=== PATIENT | female | born 1955 | race African-American/Black ===

== ENCOUNTER → 2016-05-29 | Outpatient (CLI) | payer MEDICAID, MEDICARE | LOC: WI 09:23 | PROVIDERS: ATTEND Nurse Practitioner Psychiatric/Mental Health | DX: Z12.31 Encounter for screening mammogram for malignant neoplasm of breast (principal) | CPT/HCPCS: 77067; G0202 ==

== ENCOUNTER 2016-10-28 18:34 | Emergency (ER) | payer MEDICARE ==
--- NOTE | 2016-10-28 18:46 | ER Document Report ---
ED Medical Screen (RME) - General Chief Complaint: Dizziness Stated Complaint: DIZZY, BLURRED VISION,HEADACHE Time Seen by Provider: 10/28/16 18:42 Mode of Arrival: Wheelchair Information source: Patient TRAVEL OUTSIDE OF THE [place] IN LAST 30 DAYS: No - HPI Patient complains to provider of: Dizzy, lightheaded, diaphoresis Onset: Just prior to arrival Notes: 10/28/16 18:45 Patient is a 60-year-old female presenting to the emergency room complaining of episode of dizziness, lightheadedness, diaphoresis, felt like she was going to pass out, this occurred while she was eating dinner, EMS found her to be hypotensive, she does have a history of hypertension and takes medication for this but her dosing was not changed recently and no new medications were added, she denies any recent illness or injury, she did have a right-sided headache at one point in time today but that is completely resolved at time of my evaluation , she denies a fever, no cough, cold or congestion, no chest pain or shortness of breath, no nausea, vomiting or diarrhea - Related Data Allergies/Adverse Reactions: No Known Allergies Allergy (Verified 10/28/16 18:40) Past Medical History - Social History Family history: CAD, DM, Hyperlipidemia, Hypertension, Malignancy - Past Medical History Cardiac Medical History: Reports: Hx Hypertension - meds few yrs Denies: Hx Coronary Artery Disease, Hx Heart Attack Pulmonary Medical History: Denies: Hx Asthma, Hx Bronchitis, Hx COPD, Hx Pneumonia, Hx Tuberculosis Neurological Medical History: Denies: Hx Cerebrovascular Accident, Hx Seizures Renal/ Medical History: Denies: Hx Peritoneal Dialysis Musculoskeltal Medical History: Reports Hx Arthritis - all over Psychiatric Medical History: Reports: Hx Depression Past Surgical History: Reports: Hx Cholecystectomy, Hx Hysterectomy. Denies: Hx Pacemaker - Immunizations Immunizations up to date: Yes Hx Diphtheria, Pertussis, Tetanus Vaccination: No
[2016-10-28] MEDS: NORMAL SALINE 1000 ML 1,000 ML IV PRN ×2 (19:08→21:24)
[2016-10-28] MEDS ORDERED: NORMAL SALINE 1000 ML 1,000 ML IV ONE (19:17)
[2016-10-28 19:23] LABS: ABSOLUTE EOSINOPHILS # (AUTO) 0.1 10^3/uL (0.0-0.6); ABSOLUTE MONOCYTES (AUTO) 0.4 10^3/uL (0.1-1.4); ABSOLUTE NEUT (AUTO) 2.4 10^3/uL (1.7-8.2); BASOPHILS % (AUTO) 0.5 % (0-2); EOSINOPHILS % (AUTO) 2.1 % (0-6); HEMATOCRIT 41.1 % (36.0-47.0); HEMOGLOBIN 13.4 g/dL (12.0-15.5); HGB HCT DIFFERENCE -0.9; LYMPHOCYTES % (AUTO) 39.7 % (13-45); MEAN CORPUSCULAR HEMOGLOBIN 29.6 pg (27.0-33.4); MEAN CORPUSCULAR HGB CONC 32.5 g/dL (32.0-36.0); MEAN CORPUSCULAR VOLUME 91 fl (80-97); MONOCYTES % (AUTO) 8.3 % (3-13); RED BLOOD COUNT 4.51 10^6/uL (3.72-5.28); RED CELL DISTRIBUTION WIDTH 15.7 % (11.5-14.0); SEGMENTED NEUTROPHILS % (AUTO) 49.4 % (42-78)
[2016-10-28 19:37] LABS: ALANINE AMINOTRANSFERASE 184 U/L (9-52); ALBUMIN 3.8 g/dL (3.5-5.0); ALKALINE PHOSPHATASE 211 U/L (38-126); ANION GAP 12 (5-19); ASPARTATE AMINO TRANSFERASE 300 U/L (14-36); BILIRUBIN,DIRECT 0.3 mg/dL (0.0-0.4); BILIRUBIN,TOTAL 0.4 mg/dL (0.2-1.3); BLOOD UREA NITROGEN 15 mg/dL (7-20); CALCIUM 9.4 mg/dL (8.4-10.2); CARBON DIOXIDE 23 mmol/L (22-30); CHLORIDE 108 mmol/L (98-107); CREATINE KINASE 249 U/L (30-135); CREATININE RESULT 1.83 mg/dL (0.52-1.25); GLUCOSE 82 mg/dL (75-110); TOTAL PROTEIN 7.1 g/dL (6.3-8.2)
[2016-10-28 19:47] LABS: CREATINE KINASE MB 1.49 ng/mL (<4.55); TROPONIN I < 0.012 ng/mL
[2016-10-28 20:08] LABS: APPEARANCE,URINE CLOUDY; BILIRUBIN,URINE SMALL (NEGATIVE); GLUCOSE, URINE NEGATIVE (NEGATIVE); KETONES,URINE NEGATIVE (NEGATIVE); LEUKOCYTE ESTERASE,URINE TRACE (NEGATIVE); NITRITE,URINE NEGATIVE (NEGATIVE); PROTEIN,URINE 30 mg/dL (NEGATIVE); URINE SPECIFIC GRAVITY 1.023
--- NOTE | 2016-10-28 20:30 | ER Document Report ---
ED General - General Chief Complaint: Dizziness Stated Complaint: DIZZY, BLURRED VISION,HEADACHE Time Seen by Provider: 10/28/16 18:42 Mode of Arrival: Wheelchair Information source: Patient Notes: 60-year-old female resents with complaints of dizziness lightheadedness sensation she is going to pass out. Patient notes symptoms worsen when she stands up. Patient found to be hypotensive on arrival. Patient denies any fevers or chills denies any nausea vomiting or diarrhea. Patient denies a history of hypotension but notes a history of hypertension unsure which medication she states she knows she took it this morning TRAVEL OUTSIDE OF THE [place] IN LAST 30 DAYS: No - HPI Onset: Just prior to arrival Onset/Duration: Sudden Quality of pain: No pain Severity: Moderate Pain Level: Denies Associated symptoms: Weakness Exacerbated by: Standing Relieved by: Denies Similar symptoms previously: No Recently seen / treated by doctor: No - Related Data Allergies/Adverse Reactions: No Known Allergies Allergy (Verified 10/28/16 18:40) Past Medical History - General Information source: Patient - Social History Smoking Status: Current Every Day Smoker Cigarette use (# per day): Yes Chew tobacco use (# tins/day): No Smoking Education Provided: No Frequency of alcohol use: Heavy Drug Abuse: None Family History: Reviewed & Not Pertinent - Past Medical History Cardiac Medical History: Reports: Hx Hypertension - meds few yrs Denies: Hx Coronary Artery Disease, Hx Heart Attack Pulmonary Medical History: Denies: Hx Asthma, Hx Bronchitis, Hx COPD, Hx Pneumonia, Hx Tuberculosis Neurological Medical History: Denies: Hx Cerebrovascular Accident, Hx Seizures Renal/ Medical History: Denies: Hx Peritoneal Dialysis Musculoskeltal Medical History: Reports Hx Arthritis - all over Psychiatric Medical History: Reports: Hx Depression Past Surgical History: Reports: Hx Cholecystectomy, Hx Hysterectomy. Denies: Hx Pacemaker - Immunizations Immunizations up to date: Yes Hx Diphtheria, Pertussis, Tetanus Vaccination: No Hx Pneumococcal Vaccination: 11/03/12 Review of Systems - Review of Systems Notes: REVIEW OF SYSTEMS: CONSTITUTIONAL : Denies fever, chills, or sweats. Denies recent illness. Admits to diaphoresis EENT: Denies eye, ear, throat, or mouth pain or symptoms. Denies nasal or sinus congestion or discharge. Denies throat, tongue, or mouth swelling or difficulty swallowing. CARDIOVASCULAR: Denies chest pain. Denies palpitations or racing or irregular heart beat. Denies ankle edema. RESPIRATORY: Denies cough, cold, or chest congestion. Denies shortness of breath, difficulty breathing, or wheezing. GASTROINTESTINAL: Denies abdominal pain or distention. Denies nausea, vomiting , or diarrhea. Denies blood in vomitus, stools, or per rectum. Denies black, tarry stools. Denies constipation. GENITOURINARY: Denies difficulty urinating, painful urination, burning, frequency, blood in urine, or discharge. FEMALE GENITOURINARY: Denies vaginal bleeding, heavy or abnormal periods, irregular periods. Denies vaginal discharge or odor. MUSCULOSKELETAL: Denies back or neck pain or stiffness. Denies joint pain or swelling. SKIN: Denies rash, lesions or sores. HEMATOLOGIC : Denies easy bruising or bleeding. LYMPHATIC: Denies swollen, enlarged glands. NEUROLOGICAL: Admits lightheadedness dizziness PSYCHIATRIC: Denies anxiety or stress. Denies depression, suicidal ideation, or homicidal ideation. ALL OTHER SYSTEMS REVIEWED AND NEGATIVE. PHYSICAL EXAMINATION: GENERAL: Well-appearing, well-nourished and in no acute distress. Hypotensive on arrival HEAD: Atraumatic, normocephalic. EYES: Pupils equal round and reactive to light, extraocular movements intact, conjunctiva are normal. ENT: Nares patent, oropharynx clear without exudates. Moist mucous membranes. NECK: Normal range of motion, supple without lymphadenopathy LUNGS: Breath sounds clear to auscultation bilaterally and equal. No wheezes rales or rhonchi. HEART: Regular rate and rhythm without murmurs ABDOMEN: Soft, nontender, nondistended abdomen. No guarding, no rebound. No masses appreciated. Female : deferred Musculoskeletal: Normal range of motion, no pitting or edema. No cyanosis. NEUROLOGICAL: Cranial nerves grossly intact. Normal speech, normal gait. Normal sensory, motor exams PSYCH: Normal mood, normal affect. SKIN: Warm, Dry, normal turgor, no rashes or lesions noted. Dictation was performed using [employer] voice recognition software Physical Exam - Vital signs Vitals: Temp Pulse Resp BP Pulse Ox 97.6 F 109 H 20 93/57 L 96 10/28/16 18:40 10/28/16 18:40 10/28/16 18:40 10/28/16 18:40 10/28/16 18:40 Course - Re-evaluation Re-evalutation: 10/28/16 20:29 Patient immediately started on IV fluids otherwise looks well, lab work is consistent with elevated liver enzymes, ultrasound is pending patient otherwise afebrile 10/28/16 23:04 Patient admits that she does take hydrocodone with Tylenol in it, I believe this is a cause of her elevated liver enzymes, I do believe her blood pressure was low due to dehydration or medication use. Patient was given 4 bags of IV fluids given that she does not have a CHF history, she notes significant improvement, both she and family request to be discharged. Patient will follow up with her primary care physician regarding her pain medications After performing a Medical Screening Examination, I estimate there is LOW risk for INTRACRANIAL HEMORRHAGE, ISCHEMIC CVA, MALIGNANT DYSRHYTHMIA, ACUTE CORONARY SYNDROME, MENINGITIS, PULMONARY EMBOLISM, or SEPSIS thus I consider the discharge disposition reasonable. I have reevaluated this patient multiple times and no significant life threatening changes are noted. The patient and I have discussed the diagnosis and risks, and we agree with discharging home with close follow-up with the understanding that symptoms and presentations can change. We also discussed returning to the Emergency Department immediately if new or worsening symptoms occur. We have discussed the symptoms which are most concerning (e.g., changing or worsening pain, weakness, vomiting, fever) that necessitate immediate return. - Vital Signs Vital signs: Temp Pulse Resp BP Pulse Ox 97.6 F 109 H 20 115/54 L 100 10/28/16 18:40 10/28/16 18:40 10/28/16 22:38 10/28/16 22:38 10/28/16 22:38 - Laboratory Result Diagrams: 10/28/16 19:07 10/28/16 19:07 Laboratory results interpreted by me: 10/28/16 10/28/16 10/28/16 19:07 19:07 19:50 RDW 15.7 H Chloride 108 H Creatinine 1.83 H Est GFR ( Amer) 34 L Est GFR (Non-Af Amer) 28 L AST 300 H ALT 184 H Alkaline Phosphatase 211 H Creatine Kinase 249 H Urine Protein 30 H Urine Bilirubin SMALL H Urine Urobilinogen 4.0 H Ur Leukocyte Esterase TRACE H Discharge - Discharge Clinical Impression: Elevated liver enzymes, Acute renal insufficiency Hypotension Qualifiers: Hypotension type: unspecified hypotension type Qualified Code(s): I95.9 - Hypotension, unspecified Condition: Stable Disposition: HOME, SELF-CARE Instructions: Hypotension ([facility]), Liver Function Abnormality ([facility]) Additional Instructions: Please stop taking any Tylenol Referrals: HECTOR LA[facility] MD [Primary Care Provider] - Follow up tomorrow
[2016-10-28] MEDS ORDERED: NORMAL SALINE 1000 ML 1,000 ML IV PRN (20:54)
--- NOTE | 2016-10-28 21:04 | EKG REPORT ---
SEVERITY:- BORDERLINE ECG - SINUS RHYTHM PROBABLE LEFT ATRIAL ABNORMALITY : Confirmed by: Jaciel Bull 28-Oct-2016 21:03:51
--- NOTE | 2016-10-28 21:23 | RADIOLOGY REPORT (SQ) ---
EXAM DESCRIPTION: U/S ABDOMEN LIMITED W/O DOP COMPLETED DATE/TIME: 10/28/2016 9:14 pm REASON FOR STUDY: RUQ PAIN COMPARISON: 2013. TECHNIQUE: Dynamic and static grayscale images acquired of the abdomen and recorded on PACS. Julianao nal selected color Doppler and spectral images recorded. LIMITATIONS: Study limited due to acoustical interference from fat or from air in the bowel. FINDINGS: PANCREAS: Poorly seen secondary to acoustical interference from fat or from air in the bow el. No visualized masses. Duct normal caliber as seen. LIVER: Echotexture is coarse with increased echogenicity consistent with fatty infiltration. LIVER VASCULATURE: Normal directional flow of the main portal vein and hepatic veins. GALLBLADDER: Cholecystectomy. ULTRASOUND-DETECTED BARBOSA'S SIGN: Not applicable. INTRAHEPATIC DUCTS AND COMMON DUCT: CBD and intrahepatic ducts normal caliber. No filling defects. INFERIOR VENA CAVA: Normal flow. AORTA: No aneurysm. RIGHT KIDNEY: Normal size. Normal echogenicity. No solid or suspicious masses. No hydronephrosis. No calcifications. LEFT KIDNEY: Normal size. Normal echogenicity. No solid or suspicious masses. No hydronephrosis. No calcifications. SPLEEN:Normal size. No solid masses. PERITONEAL AND PLEURAL SPACES: No ascites or effusions. OTHER: No other significant finding. IMPRESSION: FATTY INFILTRATION OF THE LIVER. NO OTHER SIGNIFICANT FINDING IN THE VISUALIZED ABDOMEN. TECHNICAL DOCUMENTATION: JOB ID: [id number] [employer]- All Rights Reserved
[2016-10-28 22:39] VITALS: BP 115/54
== END 2016-10-28 22:48 | disposition home or self-care (01) ==
LOC: ER 18:34
DX: N28.9 Disorder of kidney and ureter, unspecified (principal); R74.8 Abnormal levels of other serum enzymes; I95.9 Hypotension, unspecified; R42 Dizziness and giddiness; R51 Headache; H53.8 Other visual disturbances; F17.210 Nicotine dependence, cigarettes, uncomplicated
CPT/HCPCS: 93005; 99285; 96360; 96361; 36415; 82553; 82550; 85025; 80053; 81001; 84484; 80074; 76705; 93010; J7030

== ENCOUNTER 2018-08-31 15:00 | Inpatient (IN) | payer MEDICARE ==
--- NOTE | 2018-08-31 15:28 | ER Document Report ---
ED Medical Screen (RME) - General Chief Complaint: S/S of Possible Stroke Stated Complaint: WEAKNESS Time Seen by Provider: 08/31/18 15:04 Primary Care Provider: HECT[facility] MD [Primary Care Provider] - Follow up as needed Mode of Arrival: Wheelchair Information source: Patient, Relative Notes: Patient presents to the emergency department with complaints of facial drooping and slurred speech that lasted approximately 5 minutes prior to arrival. Patient now feels weak. Denies history of stroke. No obvious neuro deficits noted. I have greeted and performed a rapid initial assessment of this patient. A comprehensive ED assessment and evaluation of the patient, analysis of test results and completion of the medical decision making process will be conducted by additional ED providers. Dictation of this chart was performed using voice recognition software; therefore, there may be some unintended grammatical errors. TRAVEL OUTSIDE OF THE [place] IN LAST 30 DAYS: No - Related Data Allergies/Adverse Reactions: No Known Allergies Allergy (Verified 08/31/18 15:05) Past Medical History - Social History Family history: CAD, DM, Hyperlipidemia, Hypertension, Malignancy - Past Medical History Cardiac Medical History: Reports: Hx Hypertension - meds few yrs Denies: Hx Coronary Artery Disease, Hx Heart Attack Pulmonary Medical History: Denies: Hx Asthma, Hx Bronchitis, Hx COPD, Hx Pneumonia, Hx Tuberculosis Neurological Medical History: Denies: Hx Cerebrovascular Accident, Hx Seizures Renal/ Medical History: Denies: Hx Peritoneal Dialysis Musculoskeltal Medical History: Reports Hx Arthritis - all over Psychiatric Medical History: Reports: Hx Depression Past Surgical History: Reports: Hx Cholecystectomy, Hx Hysterectomy. Denies: Hx Pacemaker - Immunizations Immunizations up to date: Yes Hx Diphtheria, Pertussis, Tetanus Vaccination: No Doctor's Discharge - Discharge Referrals: H[facility] MD [Primary Care Provider] - Follow up as needed
--- NOTE | 2018-08-31 15:31 | RADIOLOGY REPORT (SQ) ---
EXAM DESCRIPTION: CT HEAD WITHOUT COMPLETED DATE/TIME: 08/31/2018 3:14 pm REASON FOR STUDY: possible stroke COMPARISON: None. TECHNIQUE: Axial images acquired through the brain without intravenous contrast. Images reviewed wi th bone, brain and subdural windows. Additional sagittal and coronal reconstructions were generated. Images stored on PACS. All CT scanners at this facility use dose modulation, iterative reconstruction, and/or weight based d osing when appropriate to reduce radiation dose to as low as reasonably achievable (ALARA). [facility]: Dose Right [facility]: CareDose [facility]: Dose Right [facility]: Teradose 4D [facility]: Monitor110 RADIATION DOSE: CT Rad equipment meets quality standard of care and radiation dose reduction techniq ues were employed. CTDIvol: 53.2 mGy. DLP: 964 mGy-cm. mGy. LIMITATIONS: None. FINDINGS: VENTRICLES: Normal size and contour. CEREBRUM: No masses. No hemorrhage. No midline shift. No evidence for acute infarction. Normal gra y/white matter differentiation. No areas of low density in the white matter. CEREBELLUM: No masses. No hemorrhage. No alteration of density. No evidence for acute infarction. EXTRAAXIAL SPACES: No fluid collections. No masses. ORBITS AND GLOBE: No intra- or extraconal masses. Normal contour of globe without masses. CALVARIUM: No fracture. PARANASAL SINUSES: No fluid or mucosal thickening. SOFT TISSUES: No mass or hematoma. OTHER: No other significant finding. IMPRESSION: No CT evidence of acute stroke or hemorrhage. EVIDENCE OF ACUTE STROKE: NO. Findings reported ER by critical findings reporting system at time of dictation. COMMENT: Quality ID # [id number]: Final reports with documentation of one or more dose reduction techniques (e.g., Automated exposure control, adjustment of the mA and/or kV according to patient size, use of iterative reconstruction technique) TECHNICAL DOCUMENTATION: JOB ID: [id number] [employer]- All Rights Reserved Reading location - IP/workstation name: [email or web address]
--- NOTE | 2018-08-31 15:36 | RADIOLOGY REPORT (SQ) ---
EXAM DESCRIPTION: CHEST SINGLE VIEW COMPLETED DATE/TIME: 08/31/2018 3:24 pm REASON FOR STUDY: possible stroke COMPARISON: None. EXAM PARAMETERS: NUMBER OF VIEWS: One view. TECHNIQUE: Single frontal radiographic view of the chest acquired. RADIATION DOSE: NA LIMITATIONS: None. FINDINGS: LUNGS AND PLEURA: No acute infiltrates or effusions. . MEDIASTINUM AND HILAR STRUCTURES: No masses. Contour normal. HEART AND VASCULAR STRUCTURES: The heart is normal with normal pulmonary vasculature. BONES: No acute findings. HARDWARE: None in the chest. OTHER: No other significant finding. IMPRESSION: NO ACUTE DISEASE. TECHNICAL DOCUMENTATION: JOB ID: [id number] [employer]- All Rights Reserved Reading location - IP/workstation name: [email or web address]
[2018-08-31] MEDS ORDERED: NORMAL SALINE 1000 ML 1,000 ML IV ONE ×2 (15:43→16:33)
[2018-08-31 15:45] LABS: ABSOLUTE EOSINOPHILS # (AUTO) 0.1 10^3/uL (0.0-0.6); ABSOLUTE LYMPHOCYTES (AUTO) 2.3 10^3/uL (0.5-4.7); ABSOLUTE MONOCYTES (AUTO) 0.6 10^3/uL (0.1-1.4); BASOPHILS % (AUTO) 0.8 % (0-2); EOSINOPHILS % (AUTO) 2.1 % (0-6); HEMATOCRIT 39.3 % (36.0-47.0); INTERNATIONAL RATION (INR) 1.01; LYMPHOCYTES % (AUTO) 38.3 % (13-45); MEAN CORPUSCULAR HEMOGLOBIN 29.7 pg (27.0-33.4); MEAN CORPUSCULAR VOLUME 90 fl (80-97); MONOCYTES % (AUTO) 9.7 % (3-13); PLATELET COUNT 295 10^3/uL (150-450); PROTHROMBIN TIME 13.3 SEC (11.4-15.4); RED BLOOD COUNT 4.37 10^6/uL (3.72-5.28); RED CELL DISTRIBUTION WIDTH 15.3 % (11.5-14.0); SEGMENTED NEUTROPHILS % (AUTO) 49.1 % (42-78); TOTAL CELLS COUNTED % (AUTO) 100 %; WHITE BLOOD COUNT 6.1 10^3/uL (4.0-10.5)
[2018-08-31 15:46] LABS: PARTIAL THROMBOPLASTIN TIME 31.3 SEC (23.5-35.8)
[2018-08-31 15:58] LABS: ALANINE AMINOTRANSFERASE 24 U/L (9-52); ALBUMIN 3.7 g/dL (3.5-5.0); ALKALINE PHOSPHATASE 82 U/L (38-126); ANION GAP 8 (5-19); ASPARTATE AMINO TRANSFERASE 22 U/L (14-36); BILIRUBIN,DIRECT 0.2 mg/dL (0.0-0.4); BILIRUBIN,TOTAL 0.3 mg/dL (0.2-1.3); BLOOD UREA NITROGEN 8 mg/dL (7-20); CALCIUM 9.7 mg/dL (8.4-10.2); CARBON DIOXIDE 26 mmol/L (22-30); CHLORIDE 108 mmol/L (98-107); CREATINE KINASE 159 U/L (30-135); GLUCOSE 108 mg/dL (75-110); POTASSIUM 4.2 mmol/L (3.6-5.0); SODIUM 141.8 mmol/L (137-145); TOTAL PROTEIN 6.8 g/dL (6.3-8.2)
[2018-08-31 16:17] LABS: TROPONIN I < 0.012 ng/mL
--- NOTE | 2018-08-31 17:31 | ER Document Report ---
Entered by JAGDISH LOWE SCRIBE 08/31/18 1545 Acting as scribe for:SERENA JAMA MD ED General - General Chief Complaint: S/S of Possible Stroke Stated Complaint: WEAKNESS Time Seen by Provider: 08/31/18 15:04 Mode of Arrival: Wheelchair Notes: Patient is a 62-year-old female presenting to the emergency department complaining of a headache. Patient states that at 1350 today she was sitting down and abruptly got a severe headache. Patient states that she has also been experiencing left sided facial weakness and drooping. Patient states that moments after her headache she began shaking uncontrollably. Patient states that following that she had pain from her left shoulder radiating down to her left calf and stopping the. The patient is on chronic pain management taking [place] 10 mg 3 times daily, and gabapentin. She states this is for arthritis all over her body. The patient has no neurological deficits at this time. She is hypotensive. She is not a TPA candidate. TRAVEL OUTSIDE OF THE [place] IN LAST 30 DAYS: No - Related Data Allergies/Adverse Reactions: No Known Allergies Allergy (Verified 08/31/18 15:05) Past Medical History - General Information source: Patient, Relative - Social History Smoking Status: Unknown if Ever Smoked Cigarette use (# per day): No Chew tobacco use (# tins/day): No Smoking Education Provided: No Frequency of alcohol use: None Occupation: Unemployed Lives with: Family Family History: Reviewed & Not Pertinent - Past Medical History Cardiac Medical History: Reports: Hx Hypertension - meds few yrs Denies: Hx Coronary Artery Disease, Hx Heart Attack Pulmonary Medical History: Denies: Hx Asthma, Hx Bronchitis, Hx COPD, Hx Pneumonia, Hx Tuberculosis Neurological Medical History: Denies: Hx Cerebrovascular Accident, Hx Seizures Renal/ Medical History: Denies: Hx Peritoneal Dialysis Musculoskeletal Medical History: Reports Hx Arthritis - all over Psychiatric Medical History: Reports: Hx Depression Past Surgical History: Reports: Hx Cholecystectomy, Hx Hysterectomy. Denies: Hx Pacemaker - Immunizations Immunizations up to date: Yes Hx Diphtheria, Pertussis, Tetanus Vaccination: No Hx Pneumococcal Vaccination: 11/03/12 Physical Exam - Vital signs Vitals: Pulse Ox 97 08/31/18 15:29 - Notes Notes: Physical Exam: General: Alert, drowsy. HEENT: Left-sided facial droop. Atraumatic. PERRL. Extraocular movements intact. Oropharynx clear. Neck: Posterior cervical musculatur mildly tender to palpation. supple. Non- tender. Respiratory: No respiratory distress. Clear and equal breath sounds bilaterally. Cardiovascular: Upon entering the room patient was hypotensive, patient stayed that way for the entire time seeing her. Regular rate and rhythm. Abdominal: Normal Inspection. Non-tender. No distension. Normal Bowel Sounds. Back: Non-tender. No deformity or step off. Extremities: Moves all four extremities. Upper extremities: Normal inspection. Normal ROM. Lower extremities: Normal inspection. Trace edema bilaterally. Normal ROM. Neurological: Normal cognition. AAOx4. Normal speech. Psychological: Normal affect. Normal Mood. Skin: Warm. Dry. Normal color. Course - Re-evaluation Re-evalutation: 08/31/18 16:59 After the first liter fluid, the patient's blood pressure has come up from 82 systolic to 91 systolic. At this time she is complaining of pain to her left calf, lateral thigh and hip. Palpating the calf shows it to be quite soft with tenderness to palpate the muscle laterally. There is tenderness to palpate lateral thigh, and tenderness to palpate over the lateral and posterior lateral hip. - Vital Signs Vital signs: Temp Pulse Resp BP Pulse Ox 71 18 116/82 100 08/31/18 15:50 08/31/18 18:30 08/31/18 18:30 08/31/18 18:30 - Laboratory Result Diagrams: 08/31/18 15:30 08/31/18 15:30 Laboratory results interpreted by me: 08/31/18 08/31/18 08/31/18 15:30 15:30 15:30 RDW 15.3 H D-Dimer Chloride 108 H Creatinine 1.69 H Est GFR ( Amer) 37 L Est GFR (Non-Af Amer) 31 L POC Glucose 124 H Creatine Kinase 159 H Urine Urobilinogen 08/31/18 08/31/18 15:30 17:33 RDW D-Dimer 0.86 H Chloride Creatinine Est GFR ( Amer) Est GFR (Non-Af Amer) POC Glucose Creatine Kinase Urine Urobilinogen 2.0 H - Diagnostic Test Radiology reviewed: Image reviewed, Reports reviewed - CT scan of the head is unremarkable. Chest x-ray is unremarkable. - EKG Interpretation by Me EKG shows normal: Sinus rhythm, [place], Intervals, QRS Complexes, ST-T Waves Rate: Normal - 83 Rhythm: NSR - Consults Dr. Cagle Time consulted: 18:10 Consulted provider: will see as inpatient Critical Care Note - Critical Care Note Total time excluding time spent on procedures (mins): 30 Discharge - Discharge Clinical Impression: Renal insufficiency, Pain of left lower extremity Headache Qualifiers: Headache type: unspecified Headache chronicity pattern: acute headache Intractability: not intractable Qualified Code(s): R51 - Headache Hypotension Qualifiers: Hypotension type: unspecified hypotension type Qualified Code(s): I95.9 - Hypotension, unspecified Condition: Stable Disposition: ADMITTED OBSERVATION Admitting Provider: Kadie Cagle covering Unit Admitted: Telemetry Scribe Attestation: 08/31/18 18:37 I personally performed the services described in the documentation, reviewed and edited the documentation which was dictated to the scribe in my presence, and it accurately records my words and actions. I personally performed the services described in the documentation, reviewed and edited the documentation which was dictated to the scribe in my presence, and it accurately records my words and actions.
[2018-08-31 17:46] LABS: APPEARANCE,URINE SLIGHTLY-CLOUDY; BILIRUBIN,URINE NEGATIVE (NEGATIVE); COLOR,URINE YELLOW; GLUCOSE, URINE NEGATIVE (NEGATIVE); KETONES,URINE NEGATIVE (NEGATIVE); LEUKOCYTE ESTERASE,URINE NEGATIVE (NEGATIVE); NITRITE,URINE NEGATIVE (NEGATIVE); PROTEIN,URINE NEGATIVE (NEGATIVE); URINE SPECIFIC GRAVITY 1.005
[2018-08-31 21:07] LABS: LIPASE 50.9 U/L (23-300); PHOSPHORUS 4.2 mg/dL (2.5-4.5)
[2018-08-31 21:25] LABS: FREE T4 (FREE THYROXINE) 0.99 ng/dL (0.78-2.19)
[2018-08-31 21:38] LABS: THYROID STIMULATING HORMONE 1.38 uIU/mL (0.47-4.68)
[2018-08-31] MEDS: NORMAL SALINE 1000 ML 1,000 ML IV PRN (21:58)
[2018-08-31 22:43] LABS: PROTHROMBIN TIME 13.2 SEC (11.4-15.4)
[2018-08-31 22:44] LABS: PARTIAL THROMBOPLASTIN TIME 27.4 SEC (23.5-35.8)
[2018-08-31 23:04] LABS: CREATINE KINASE MB 0.49 ng/mL (<4.55)
[2018-08-31 23:05] LABS: TROPONIN I < 0.012 ng/mL
[2018-08-31 23:55] LABS: APPEARANCE,URINE CLEAR; BILIRUBIN,URINE NEGATIVE (NEGATIVE); COLOR,URINE YELLOW; GLUCOSE, URINE NEGATIVE (NEGATIVE); KETONES,URINE NEGATIVE (NEGATIVE); LEUKOCYTE ESTERASE,URINE NEGATIVE (NEGATIVE); NITRITE,URINE NEGATIVE (NEGATIVE); PROTEIN,URINE NEGATIVE (NEGATIVE); URINE SPECIFIC GRAVITY 1.005
--- NOTE | 2018-09-01 00:06 | EKG REPORT ---
SEVERITY:- NORMAL ECG - SINUS RHYTHM : Confirmed by: Jaciel Bull 01-Sep-2018 00:06:15
[2018-09-01 04:59] LABS: ABSOLUTE BASOPHILS # (AUTO) 0.1 10^3/uL (0.0-0.2); ABSOLUTE EOSINOPHILS # (AUTO) 0.2 10^3/uL (0.0-0.6); ABSOLUTE LYMPHOCYTES (AUTO) 3.6 10^3/uL (0.5-4.7); ABSOLUTE MONOCYTES (AUTO) 0.7 10^3/uL (0.1-1.4); ABSOLUTE NEUT (AUTO) 3.6 10^3/uL (1.7-8.2); BASOPHILS % (AUTO) 0.8 % (0-2); EOSINOPHILS % (AUTO) 2.2 % (0-6); HEMOGLOBIN 12.1 g/dL (12.0-15.5); LYMPHOCYTES % (AUTO) 44.5 % (13-45); MEAN CORPUSCULAR HEMOGLOBIN 29.5 pg (27.0-33.4); MEAN CORPUSCULAR HGB CONC 32.6 g/dL (32.0-36.0); MEAN CORPUSCULAR VOLUME 90 fl (80-97); MONOCYTES % (AUTO) 8.4 % (3-13); PLATELET COUNT 276 10^3/uL (150-450); RED BLOOD COUNT 4.09 10^6/uL (3.72-5.28); RED CELL DISTRIBUTION WIDTH 15.6 % (11.5-14.0); SEGMENTED NEUTROPHILS % (AUTO) 44.1 % (42-78); TOTAL CELLS COUNTED % (AUTO) 100 %; WHITE BLOOD COUNT 8.1 10^3/uL (4.0-10.5)
[2018-09-01 05:46] LABS: ALANINE AMINOTRANSFERASE 19 U/L (9-52); ALBUMIN 3.1 g/dL (3.5-5.0); ALKALINE PHOSPHATASE 83 U/L (38-126); ASPARTATE AMINO TRANSFERASE 33 U/L (14-36); BILIRUBIN,DIRECT 0.2 mg/dL (0.0-0.4); BILIRUBIN,TOTAL 0.2 mg/dL (0.2-1.3); BLOOD UREA NITROGEN 10 mg/dL (7-20); CALCIUM 8.5 mg/dL (8.4-10.2); CHOLESTEROL 158.12 mg/dL (0-200); GLUCOSE 97 mg/dL (75-110); POTASSIUM 3.6 mmol/L (3.6-5.0); TOTAL PROTEIN 6.1 g/dL (6.3-8.2); TRIGLYCERIDES 78 mg/dL (<150)
[2018-09-01 05:51] LABS: ANION GAP 5 (5-19); CARBON DIOXIDE 23 mmol/L (22-30); CHLORIDE 115 mmol/L (98-107); SODIUM 143.1 mmol/L (137-145)
[2018-09-01 05:54] LABS: CREATINE KINASE MB 0.58 ng/mL (<4.55); TROPONIN I < 0.012 ng/mL
[2018-09-01 05:59] LABS: DIRECT LDL 98 mg/dL (<100)
[2018-09-01] MEDS: NORMAL SALINE 1000 ML 1,000 ML IV PRN (06:46)
--- NOTE | 2018-09-01 09:43 | PDOC H&P ---
History of Present Illness Admission Date/PCP: 08/31/18 18:40 [place] History of Present Illness: LEONARDA RIVERA is a 62 year old female, she came to the emergency room for evaluation of a new onset transient loss of vision, left-sided headache and left-sided weakness. She stated that she was in granddaughter's house, she was drinking wine and she experienced transient loss of vision that lasted few minutes subsequently she developed a headache and also transient weakness of left side of her body. She had difficulty ambulating, she was assisted to the vehicle by family members. When she arrived in the emergency room the blood pressure recorded was low there was no explanation for the low blood pressure she was fluid challenge with improvement in the blood pressure she was also found to have elevated serum creatinine at 1.69, she does not have a known history of kidney disease that she know of, she has chronic pain and she follows with pain management she is on opioid [place] with gabapentin for pain control. She has no diabetes mellitus but she is overweight/obese, she had gastric bypass in the 90s obviously that is unsuccessful surgery because she is very obese, the body mass index is 59. Past Medical History Cardiac Medical History: Reports: Hypertension - meds few yrs Endocrine Medical History: Reports: Obesity Musculoskeltal Medical History: Reports: Arthritis - all over Psychiatric Medical History: Reports: Depression - anxiety Past Surgical History Past Surgical History: Reports: Cholecystectomy, Hysterectomy Social History Lives with: Family Smoking Status: Current Every Day Smoker Cigarettes Packs Per Day: 0.5 Number of Years Smokin Last Time Smoked: today Frequency of Alcohol Use: Rare Hx Recreational Drug Use: No Drugs: Marijuana Hx Prescription Drug Abuse: No Family History Family History: Reviewed & Not Pertinent Parental Family History Reviewed: Yes Children Family History Reviewed: Yes Sibling(s) Family History Reviewed.: Yes Medication/Allergy Allergies/Adverse Reactions: No Known Allergies Allergy (Verified 08/31/18 15:05) Review of Systems Constitutional: ABSENT: chills, fever(s), headache(s), weight gain, weight loss Eyes: ABSENT: visual disturbances Ears: ABSENT: hearing changes Cardiovascular: ABSENT: chest pain, dyspnea on exertion, edema, orthropnea, palpitations Respiratory: ABSENT: cough, hemoptysis Gastrointestinal: ABSENT: abdominal pain, constipation, diarrhea, hematemesis, hematochezia, nausea, vomiting Genitourinary: ABSENT: dysuria, hematuria Musculoskeletal: ABSENT: joint swelling Integumentary: ABSENT: rash, wounds Neurological: PRESENT: weakness Psychiatric: ABSENT: anxiety, depression, homidical ideation, suicidal ideation Endocrine: ABSENT: cold intolerance, heat intolerance, menstrual abnormalities, polydipsia, polyuria Hematologic/Lymphatic: ABSENT: easy bleeding, easy bruising, lymphadenopathy Physical Exam Vital Signs: Temp Pulse Resp BP Pulse Ox 97.3 F 65 18 140/71 H 100 09/01/18 07:29 09/01/18 07:29 09/01/18 07:29 09/01/18 07:29 09/01/18 07:29 Intake & Output 08/31/18 09/01/18 09/02/18 06:59 06:59 06:59 Intake Total 3260 Output Total 900 Balance 2360 Weight 157.1 kg General appearance: PRESENT: morbidly obese Head exam: PRESENT: atraumatic, normocephalic Eye exam: PRESENT: PERRLA Mouth exam: PRESENT: moist, tongue midline Neck exam: PRESENT: full ROM Respiratory exam: PRESENT: clear to auscultation hermes Cardiovascular exam: PRESENT: RRR, +S1, +S2 Pulses: PRESENT: normal dorsalis pedis pul, +2 pedal pulses bilateral Vascular exam: PRESENT: normal capillary refill GI/Abdominal exam: PRESENT: normal bowel sounds, soft Rectal exam: PRESENT: deferred Neurological exam: PRESENT: alert, CN II-XII grossly intact Psychiatric exam: PRESENT: appropriate affect, normal mood Skin exam: PRESENT: dry, intact, warm Results Laboratory Results: 09/01/18 04:35 09/01/18 04:35 08/31/18 08/31/18 08/31/18 15:30 15:30 15:30 WBC 6.1 RBC 4.37 Hgb 13.0 Hct 39.3 MCV 90 MCH 29.7 MCHC 33.0 RDW 15.3 H Plt Count 295 Seg Neutrophils % 49.1 Lymphocytes % 38.3 Monocytes % 9.7 Eosinophils % 2.1 Basophils % 0.8 Absolute Neutrophils 3.0 Absolute Lymphocytes 2.3 Absolute Monocytes 0.6 Absolute Eosinophils 0.1 Absolute Basophils 0.0 Sodium 141.8 Potassium 4.2 Chloride 108 H Carbon Dioxide 26 Anion Gap 8 BUN 8 Creatinine 1.69 H Est GFR ( Amer) 37 L Est GFR (Non-Af Amer) 31 L Glucose 108 Calcium 9.7 Phosphorus 4.2 Magnesium 2.2 Total Bilirubin 0.3 AST 22 ALT 24 Alkaline Phosphatase 82 Ammonia Total Protein 6.8 Albumin 3.7 Triglycerides Cholesterol LDL Cholesterol Direct VLDL Cholesterol HDL Cholesterol Amylase 112 H Lipase 50.9 TSH Free T4 Urine Color Urine Appearance Urine pH Ur Specific [place] Urine Protein Urine Glucose (UA) Urine Ketones Urine Blood Urine Nitrite Ur Leukocyte Esterase Urine WBC (Auto) Urine RBC (Auto) 08/31/18 08/31/18 08/31/18 15:30 17:33 22:24 WBC RBC Hgb Hct MCV MCH MCHC RDW Plt Count Seg Neutrophils % Lymphocytes % Monocytes % Eosinophils % Basophils % Absolute Neutrophils Absolute Lymphocytes Absolute Monocytes Absolute Eosinophils Absolute Basophils Sodium Potassium Chloride Carbon Dioxide Anion Gap BUN Creatinine Est GFR ( Amer) Est GFR (Non-Af Amer) Glucose Calcium Phosphorus Magnesium Total Bilirubin AST ALT Alkaline Phosphatase Ammonia 20.8 Total Protein Albumin Triglycerides Cholesterol LDL Cholesterol Direct VLDL Cholesterol HDL Cholesterol Amylase Lipase TSH 1.38 Free T4 0.99 Urine Color YELLOW Urine Appearance SLIGHTLY-CLOUDY Urine pH 7.0 Ur Specific [place] 1.005 Urine Protein NEGATIVE Urine Glucose (UA) NEGATIVE Urine Ketones NEGATIVE Urine Blood NEGATIVE Urine Nitrite NEGATIVE Ur Leukocyte Esterase NEGATIVE Urine WBC (Auto) 4 Urine RBC (Auto) 0 08/31/18 09/01/18 09/01/18 23:30 04:35 04:35 WBC 8.1 RBC 4.09 Hgb 12.1 Hct 37.0 MCV 90 MCH 29.5 MCHC 32.6 RDW 15.6 H Plt Count 276 Seg Neutrophils % 44.1 Lymphocytes % 44.5 Monocytes % 8.4 Eosinophils % 2.2 Basophils % 0.8 Absolute Neutrophils 3.6 Absolute Lymphocytes 3.6 Absolute Monocytes 0.7 Absolute Eosinophils 0.2 Absolute Basophils 0.1 Sodium 143.1 Potassium 3.6 Chloride 115 H Carbon Dioxide 23 Anion Gap 5 BUN 10 Creatinine 1.18 Est GFR ( Amer) 57 L Est GFR (Non-Af Amer) 47 L Glucose 97 Calcium 8.5 Phosphorus Magnesium Total Bilirubin 0.2 AST 33 ALT 19 Alkaline Phosphatase 83 Ammonia Total Protein 6.1 L Albumin 3.1 L Triglycerides 78 Cholesterol 158.12 LDL Cholesterol Direct 98 VLDL Cholesterol 16.0 HDL Cholesterol 32 L Amylase Lipase TSH Free T4 Urine Color YELLOW Urine Appearance CLEAR Urine pH 7.0 Ur Specific [place] 1.005 Urine Protein NEGATIVE Urine Glucose (UA) NEGATIVE Urine Ketones NEGATIVE Urine Blood NEGATIVE Urine Nitrite NEGATIVE Ur Leukocyte Esterase NEGATIVE Urine WBC (Auto) 1 Urine RBC (Auto) 0 08/31/18 08/31/18 08/31/18 15:30 15:30 22:24 Creatine Kinase 159 H 120 CK-MB (CK-2) 0.50 Troponin I < 0.012 08/31/18 09/01/18 09/01/18 22:24 04:35 04:35 Creatine Kinase 151 H CK-MB (CK-2) 0.49 0.58 Troponin I < 0.012 < 0.012 Impressions: Head CT 08/31/18 00:00 IMPRESSION: No CT evidence of acute stroke or hemorrhage. EVIDENCE OF ACUTE STROKE: NO. Findings reported ER by critical findings reporting system at time of dictation. Chest X-Ray 08/31/18 15:08 IMPRESSION: NO ACUTE DISEASE. Assessment & Plan - Diagnosis (1) Transient ischemic attack Is this a current diagnosis for this admission?: Yes Plan: What she described is consistent with transient ischemic attack she will be admitted and treated for that (2) Hypotension Qualifiers: Hypotension type: unspecified hypotension type Qualified Code(s): I95.9 - Hypotension, unspecified Is this a current diagnosis for this admission?: Yes Plan: The blood pressure was responsive to fluid challenge (3) Abnormal results of kidney function studies Is this a current diagnosis for this admission?: Yes Plan: This is probably prerenal acute kidney injury, kidney ultrasound will be ordered to rule out post renal azotemia, urinalysis will also be requested
[2018-09-01] MEDS: ENOXAPARIN SODIUM INJ 40 MG/0.4 ML DISP.SYRIN SUBCUT SCH (09:49)
[2018-09-01] MEDS: ATORVASTATIN CALCIUM 80 MG TABLET PO SCH ×2 (10:30→21:11)
[2018-09-01] MEDS: ASPIRIN 325 MG TABLET, ENT COATED PO SCH (10:30)
[2018-09-01 11:25] LABS: CREATINE KINASE MB 0.69 ng/mL (<4.55)
[2018-09-01 11:28] LABS: TROPONIN I < 0.012 ng/mL
--- NOTE | 2018-09-01 11:39 | RADIOLOGY REPORT (SQ) ---
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 TECHNIQUE: Dynamic and static grayscale images acquired of the kidneys and bladder and recorded on P ACS. Additional selected color Doppler and spectral images recorded. LIMITATIONS: None. FINDINGS: RIGHT KIDNEY: Normal size. Normal echogenicity. No solid or suspicious masses. No hydronep hrosis. No calcifications. LEFT KIDNEY: Normal size. Normal echogenicity. No solid or suspicious masses. No hydronephrosis. No calcifications. BLADDER: No masses. OTHER FINDINGS: No other significant finding. IMPRESSION: NORMAL RENAL AND BLADDER ULTRASOUND. TECHNICAL DOCUMENTATION: JOB ID: [id number] [employer]- All Rights Reserved Reading location - IP/workstation name: [email or web address]
--- NOTE | 2018-09-01 12:25 | RADIOLOGY REPORT (SQ) ---
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 TECHNIQUE: Multiplanar imaging includes non-contrasted T1, T2, FLAIR, and diffusion with ADC map seq uences. Images stored on PACS. LIMITATIONS: None. FINDINGS: ANATOMY: No anomalies. Normal vascular flow voids. Pituitary fossa normal. CSF SPACES: Normal in size and contour. No hemorrhage. CEREBRUM: Sulci and gyri normal in size and contour. Normal white matter signal on FLAIR imaging. No evidence of hemorrhage, mass, or extraaxial fluid collection. POSTERIOR FOSSA: No signal alteration. No hemorrhage. No edema, masses or mass effect. Internal jerod tory canals, cerebello-pontine angles, mastoids normal. DIFFUSION IMAGING: Negative for acute or sub-acute infarction. ORBITS: No masses. Globes normal. PARANASAL SINUSES: No fluid levels. Mucosa normal. OTHER: No other significant finding. IMPRESSION: NORMAL MRI OF THE BRAIN WITHOUT INTRAVENOUS GADOLINIUM CONTRAST. EVIDENCE OF ACUTE STROKE: NO. TECHNICAL DOCUMENTATION: JOB ID: [id number] [employer]- All Rights Reserved Reading location - IP/workstation name: [email or web address]
[2018-09-01] MEDS ORDERED: TOPIRAMATE 100 MG TABLET PO ONE (22:15)
[2018-09-01] MEDS ORDERED: HALOPERIDOL 5 MG TABLET PO ONE (22:15)
[2018-09-01] MEDS ORDERED: BENZTROPINE MESYLATE 1 MG TABLET PO ONE (22:15)
[2018-09-01] MEDS ORDERED: GABAPENTIN 300 MG CAPSULE PO ONE (22:15)
[2018-09-02 04:45] LABS: ABSOLUTE EOSINOPHILS # (AUTO) 0.3 10^3/uL (0.0-0.6); ABSOLUTE LYMPHOCYTES (AUTO) 3.3 10^3/uL (0.5-4.7); ABSOLUTE MONOCYTES (AUTO) 0.5 10^3/uL (0.1-1.4); ABSOLUTE NEUT (AUTO) 2.4 10^3/uL (1.7-8.2); BASOPHILS % (AUTO) 0.6 % (0-2); EOSINOPHILS % (AUTO) 3.9 % (0-6); HEMATOCRIT 37.1 % (36.0-47.0); HEMOGLOBIN 12.1 g/dL (12.0-15.5); LYMPHOCYTES % (AUTO) 50.7 % (13-45); MEAN CORPUSCULAR HEMOGLOBIN 29.6 pg (27.0-33.4); MEAN CORPUSCULAR HGB CONC 32.8 g/dL (32.0-36.0); MEAN CORPUSCULAR VOLUME 90 fl (80-97); MONOCYTES % (AUTO) 7.2 % (3-13); PLATELET COUNT 269 10^3/uL (150-450); RED CELL DISTRIBUTION WIDTH 14.9 % (11.5-14.0); SEGMENTED NEUTROPHILS % (AUTO) 37.6 % (42-78); TOTAL CELLS COUNTED % (AUTO) 100 %; WHITE BLOOD COUNT 6.5 10^3/uL (4.0-10.5)
[2018-09-02 05:06] LABS: ALANINE AMINOTRANSFERASE 18 U/L (9-52); ALBUMIN 2.9 g/dL (3.5-5.0); ALKALINE PHOSPHATASE 75 U/L (38-126); ANION GAP 5 (5-19); ASPARTATE AMINO TRANSFERASE 20 U/L (14-36); BILIRUBIN,DIRECT 0.1 mg/dL (0.0-0.4); BILIRUBIN,TOTAL 0.2 mg/dL (0.2-1.3); BLOOD UREA NITROGEN 11 mg/dL (7-20); CALCIUM 8.7 mg/dL (8.4-10.2); CARBON DIOXIDE 25 mmol/L (22-30); CHLORIDE 113 mmol/L (98-107); GLUCOSE 92 mg/dL (75-110); POTASSIUM 4.2 mmol/L (3.6-5.0); SODIUM 142.8 mmol/L (137-145); TOTAL PROTEIN 5.7 g/dL (6.3-8.2)
[2018-09-02] MEDS: GABAPENTIN 300 MG CAPSULE PO SCH ×3 (05:53→21:10)
[2018-09-02] MEDS ORDERED: (PENDING PHARMACY ID) (Dextroamphetamine/Amphetamine [Adderall Xr 20 Mg Capsule] 20 MG) PO SCH (08:00)
[2018-09-02] MEDS: HALOPERIDOL 5 MG TABLET PO SCH ×2 (09:16→21:09)
[2018-09-02] MEDS: TOPIRAMATE 100 MG TABLET PO SCH ×2 (09:16→21:09)
[2018-09-02] MEDS: ENOXAPARIN SODIUM INJ 40 MG/0.4 ML DISP.SYRIN SUBCUT SCH (09:16)
[2018-09-02] MEDS: BENZTROPINE MESYLATE 1 MG TABLET PO SCH ×2 (09:16→17:14)
[2018-09-02] MEDS: SERTRALINE HCL 50 MG TABLET PO SCH (09:16)
[2018-09-02] MEDS: ASPIRIN 325 MG TABLET, ENT COATED PO SCH (09:16)
[2018-09-02] MEDS ORDERED: NORMAL SALINE 1000 ML 1,000 ML IV PRN (19:35)
--- NOTE | 2018-09-02 19:36 | PDOC PROGRESS REPORT ---
Subjective Progress Note for:: 09/02/18 Subjective:: Patient reported resolution of her left sided headache and vision impairment presently. No chest pain or difficulty with breathing. No nausea, vomiting or abdominal pain. Reason For Visit: UNEXPLAINED HYPOTENSION,ACUTE KIDNEY INJURY Physical Exam Vital Signs: Temp Pulse Resp BP Pulse Ox 98.0 F 70 16 135/70 H 100 09/02/18 11:34 09/02/18 19:00 09/02/18 16:00 09/02/18 16:00 09/02/18 16:00 Intake & Output 09/01/18 09/02/18 09/03/18 06:59 06:59 06:59 Intake Total 3260 1553 900 Output Total 900 4300 900 Balance 2360 -2747 0 Weight 157.1 kg 161.6 kg General appearance: PRESENT: no acute distress Head exam: PRESENT: atraumatic, normocephalic Eye exam: PRESENT: conjunctiva pink. ABSENT: scleral icterus Ear exam: PRESENT: normal external ear exam Mouth exam: PRESENT: moist Respiratory exam: PRESENT: chest wall tenderness, decreased breath sounds Cardiovascular exam: PRESENT: RRR. ABSENT: diastolic murmur, rubs, systolic murmur Vascular exam: ABSENT: pallor GI/Abdominal exam: PRESENT: normal bowel sounds, soft. ABSENT: distended, guarding, mass, organolmegaly, rebound, tenderness Extremities exam: ABSENT: pedal edema Neurological exam: PRESENT: alert, awake, oriented to person, oriented to place, oriented to time, oriented to situation, CN II-XII grossly intact, other - left lower hemiparesis, motor power 4/5. ABSENT: motor sensory deficit Psychiatric exam: PRESENT: appropriate affect, normal mood. ABSENT: homicidal ideation, suicidal ideation Skin exam: PRESENT: dry, warm Results Laboratory Results: 09/02/18 03:58 09/02/18 03:58 09/02/18 09/02/18 03:58 03:58 WBC 6.5 RBC 4.10 Hgb 12.1 Hct 37.1 MCV 90 MCH 29.6 MCHC 32.8 RDW 14.9 H Plt Count 269 Seg Neutrophils % 37.6 L Lymphocytes % 50.7 H Monocytes % 7.2 Eosinophils % 3.9 Basophils % 0.6 Absolute Neutrophils 2.4 Absolute Lymphocytes 3.3 Absolute Monocytes 0.5 Absolute Eosinophils 0.3 Absolute Basophils 0.0 Sodium 142.8 Potassium 4.2 Chloride 113 H Carbon Dioxide 25 Anion Gap 5 BUN 11 Creatinine 1.15 Est GFR ( Amer) 58 L Est GFR (Non-Af Amer) 48 L Glucose 92 Calcium 8.7 Total Bilirubin 0.2 AST 20 ALT 18 Alkaline Phosphatase 75 Total Protein 5.7 L Albumin 2.9 L 08/31/18 08/31/18 08/31/18 15:30 15:30 22:24 Creatine Kinase 159 H 120 CK-MB (CK-2) 0.50 Troponin I < 0.012 08/31/18 09/01/18 09/01/18 22:24 04:35 04:35 Creatine Kinase 151 H CK-MB (CK-2) 0.49 0.58 Troponin I < 0.012 < 0.012 09/01/18 09/01/18 09/01/18 10:17 10:17 15:50 Creatine Kinase 164 H CK-MB (CK-2) 0.69 Troponin I < 0.012 < 0.012 09/01/18 09/02/18 22:08 03:58 Creatine Kinase CK-MB (CK-2) Troponin I < 0.012 < 0.012 Impressions: Head CT 08/31/18 00:00 IMPRESSION: No CT evidence of acute stroke or hemorrhage. EVIDENCE OF ACUTE STROKE: NO. Findings reported ER by critical findings reporting system at time of dictation. Chest X-Ray 08/31/18 15:08 IMPRESSION: NO ACUTE DISEASE. Head MRI 09/01/18 00:00 IMPRESSION: NORMAL MRI OF THE BRAIN WITHOUT INTRAVENOUS GADOLINIUM CONTRAST. EVIDENCE OF ACUTE STROKE: NO. Renal Ultrasound 09/01/18 00:00 IMPRESSION: NORMAL RENAL AND BLADDER ULTRASOUND. Assessment & Plan - Diagnosis (1) Transient ischemic attack with visual impairment Is this a current diagnosis for this admission?: Yes Plan: Improving functional level. Resolution of her impaired vision. Continue rehabilitation services. (2) Hypotension Qualifiers: Hypotension type: unspecified hypotension type Qualified Code(s): I95.9 - Hypotension, unspecified Is this a current diagnosis for this admission?: Yes Plan: Resolved. (3) Headache Qualifiers: Headache type: unspecified Headache chronicity pattern: acute headache Intractability: not intractable Qualified Code(s): R51 - Headache Is this a current diagnosis for this admission?: Yes Plan: Resolved (4) Renal insufficiency Is this a current diagnosis for this admission?: Yes Plan: Improving with IV fluid hydration. Maintain on N/S at 100 ml/hour. (5) Hypertension Is this a current diagnosis for this admission?: Yes Plan: Continue current medication management. (6) Morbid obesity with BMI of 60.0-69.9, adult Is this a current diagnosis for this admission?: Yes Plan: Advised caloric restriction. s/p failed gastric bypass surgery. Will benefit from portable machine sander consultation. - Time Time Spent with patient: 25-34 minutes Medications reviewed and adjusted accordingly: Yes Anticipated discharge: Home with Homehealth Within: Other - Inpatient Certification Based on my medical assessment, after consideration of the patient's comorbidities, presenting symptoms, or acuity I expect that the services needed warrant INPATIENT care.: Yes I certify that my determination is in accordance with my understanding of Medicare's requirements for reasonable and necessary INPATIENT services [42 CFR 412.3e].: Yes Medical Necessity: Significant Comorbidiites Make Outpatient Treatment Too Risky, Need Close Monitoring Due to Risk of Patient Decompensation, Need For IV Fluids, Need For Continuous Telemetry Monitoring, Risk of Complication if Not Cared For in Hospital, Risk of Diagnosis Which Will Require Inpatient Eval/Care/Monitoring Post Hospital Care: D/C Diamond Die Polisher Documentation - Plan Summary Plan Summary: D/C MEND. Follow up on requested carotid duplex and echocardiogram. Continue IV fluid support. Obtain BMP in am.
[2018-09-02] MEDS: ATORVASTATIN CALCIUM 80 MG TABLET PO SCH (21:09)
[2018-09-03] MEDS: GABAPENTIN 300 MG CAPSULE PO SCH ×3 (05:35→22:26)
[2018-09-03 06:26] LABS: ABSOLUTE BASOPHILS # (AUTO) 0.1 10^3/uL (0.0-0.2); ABSOLUTE EOSINOPHILS # (AUTO) 0.2 10^3/uL (0.0-0.6); ABSOLUTE LYMPHOCYTES (AUTO) 2.6 10^3/uL (0.5-4.7); ABSOLUTE MONOCYTES (AUTO) 0.4 10^3/uL (0.1-1.4); ABSOLUTE NEUT (AUTO) 2.4 10^3/uL (1.7-8.2); BASOPHILS % (AUTO) 1.2 % (0-2); EOSINOPHILS % (AUTO) 3.3 % (0-6); HEMATOCRIT 36.4 % (36.0-47.0); MEAN CORPUSCULAR HEMOGLOBIN 29.4 pg (27.0-33.4); MEAN CORPUSCULAR HGB CONC 32.8 g/dL (32.0-36.0); MEAN CORPUSCULAR VOLUME 90 fl (80-97); MONOCYTES % (AUTO) 6.9 % (3-13); PLATELET COUNT 246 10^3/uL (150-450); RED BLOOD COUNT 4.07 10^6/uL (3.72-5.28); RED CELL DISTRIBUTION WIDTH 15.2 % (11.5-14.0); SEGMENTED NEUTROPHILS % (AUTO) 42.6 % (42-78); TOTAL CELLS COUNTED % (AUTO) 100 %; WHITE BLOOD COUNT 5.6 10^3/uL (4.0-10.5)
[2018-09-03 06:52] LABS: ALANINE AMINOTRANSFERASE 19 U/L (9-52); ALKALINE PHOSPHATASE 82 U/L (38-126); ANION GAP 5 (5-19); ASPARTATE AMINO TRANSFERASE 20 U/L (14-36); BILIRUBIN,DIRECT 0.2 mg/dL (0.0-0.4); BILIRUBIN,TOTAL 0.3 mg/dL (0.2-1.3); BLOOD UREA NITROGEN 13 mg/dL (7-20); CALCIUM 8.9 mg/dL (8.4-10.2); CARBON DIOXIDE 24 mmol/L (22-30); CHLORIDE 112 mmol/L (98-107); GLUCOSE 98 mg/dL (75-110); POTASSIUM 4.2 mmol/L (3.6-5.0); SODIUM 141.2 mmol/L (137-145); TOTAL PROTEIN 5.9 g/dL (6.3-8.2)
[2018-09-03] MEDS: ENOXAPARIN SODIUM INJ 40 MG/0.4 ML DISP.SYRIN SUBCUT SCH (09:36)
[2018-09-03] MEDS: BENAZEPRIL HCL 20 MG TABLET PO SCH (09:37)
[2018-09-03] MEDS: HYDROCODONE/ACETAMINOPHEN 10-325 MG TABLET PO PRN (09:37)
[2018-09-03] MEDS: HALOPERIDOL 5 MG TABLET PO SCH ×2 (09:37→22:26)
[2018-09-03] MEDS: BENZTROPINE MESYLATE 1 MG TABLET PO SCH ×2 (09:37→17:07)
[2018-09-03] MEDS: ASPIRIN 325 MG TABLET, ENT COATED PO SCH (09:37)
[2018-09-03] MEDS: SERTRALINE HCL 50 MG TABLET PO SCH (09:37)
[2018-09-03] MEDS: AMLODIPINE BESYLATE 10 MG TABLET PO SCH (09:37)
[2018-09-03] MEDS: TOPIRAMATE 100 MG TABLET PO SCH ×2 (09:38→22:25)
[2018-09-03] MEDS ORDERED: (PENDING PHARMACY ID) (Amlodipine Besylate/Benazepril [Lotrel 10-40 Mg Capsule] 1 CAP) PO SCH (10:00)
--- NOTE | 2018-09-03 12:26 | PDOC PROGRESS REPORT ---
Subjective Progress Note for:: 09/03/18 Subjective:: Patient denied any chest pain, difficulty with breathing. Ambulate with walker assistance in her room. No nausea, vomiting, or abdominal pain. No reported fever or chills. Reason For Visit: UNEXPLAINED HYPOTENSION,ACUTE KIDNEY INJURY Physical Exam Vital Signs: Temp Pulse Resp BP Pulse Ox 98.1 F 59 L 14 110/67 93 09/03/18 07:40 09/03/18 07:40 09/03/18 07:40 09/03/18 07:40 09/03/18 07:40 Intake & Output 09/02/18 09/03/18 09/04/18 06:59 06:59 06:59 Intake Total 1553 900 Output Total 4300 1750 Balance -2747 -850 Weight 161.6 kg 162.7 kg Physical Exam: General appearance: PRESENT: no acute distress Head exam: PRESENT: atraumatic, normocephalic Eye exam: PRESENT: conjunctiva pink. ABSENT: pallor, scleral icterus Ear exam: PRESENT: normal external ear exam Mouth exam: PRESENT: moist Respiratory exam: PRESENT: chest wall tenderness, decreased breath sounds Cardiovascular exam: PRESENT: RRR. ABSENT: diastolic murmur, rubs, systolic murmur GI/Abdominal exam: PRESENT: normal bowel sounds, soft. ABSENT: distended, guarding, mass, organomegaly, rebound, tenderness Extremities exam: ABSENT: pedal edema Neurological exam: PRESENT: alert, awake, oriented to person, oriented to place, oriented to time, oriented to situation, CN II-XII grossly intact, other - left lower hemiparesis, motor power 4/5. ABSENT: motor sensory deficit Psychiatric exam: PRESENT: appropriate affect, normal mood. ABSENT: homicidal ideation, suicidal ideation Skin exam: PRESENT: dry, warm Results Laboratory Results: 09/03/18 05:48 09/03/18 05:48 09/03/18 09/03/18 05:48 05:48 WBC 5.6 RBC 4.07 Hgb 12.0 Hct 36.4 MCV 90 MCH 29.4 MCHC 32.8 RDW 15.2 H Plt Count 246 Seg Neutrophils % 42.6 Lymphocytes % 46.0 H Monocytes % 6.9 Eosinophils % 3.3 Basophils % 1.2 Absolute Neutrophils 2.4 Absolute Lymphocytes 2.6 Absolute Monocytes 0.4 Absolute Eosinophils 0.2 Absolute Basophils 0.1 Sodium 141.2 Potassium 4.2 Chloride 112 H Carbon Dioxide 24 Anion Gap 5 BUN 13 Creatinine 1.03 Est GFR ( Amer) > 60 Est GFR (Non-Af Amer) 55 L Glucose 98 Calcium 8.9 Total Bilirubin 0.3 AST 20 ALT 19 Alkaline Phosphatase 82 Total Protein 5.9 L Albumin 3.0 L 08/31/18 08/31/18 08/31/18 15:30 15:30 22:24 Creatine Kinase 159 H 120 CK-MB (CK-2) 0.50 Troponin I < 0.012 08/31/18 09/01/18 09/01/18 22:24 04:35 04:35 Creatine Kinase 151 H CK-MB (CK-2) 0.49 0.58 Troponin I < 0.012 < 0.012 09/01/18 09/01/18 09/01/18 10:17 10:17 15:50 Creatine Kinase 164 H CK-MB (CK-2) 0.69 Troponin I < 0.012 < 0.012 09/01/18 09/02/18 22:08 03:58 Creatine Kinase CK-MB (CK-2) Troponin I < 0.012 < 0.012 Impressions: Head CT 08/31/18 00:00 IMPRESSION: No CT evidence of acute stroke or hemorrhage. EVIDENCE OF ACUTE STROKE: NO. Findings reported ER by critical findings reporting system at time of dictation. Chest X-Ray 08/31/18 15:08 IMPRESSION: NO ACUTE DISEASE. Head MRI 09/01/18 00:00 IMPRESSION: NORMAL MRI OF THE BRAIN WITHOUT INTRAVENOUS GADOLINIUM CONTRAST. EVIDENCE OF ACUTE STROKE: NO. Renal Ultrasound 09/01/18 00:00 IMPRESSION: NORMAL RENAL AND BLADDER ULTRASOUND. Assessment & Plan - Diagnosis (1) Transient ischemic attack with visual impairment Is this a current diagnosis for this admission?: Yes (2) Hypotension Qualifiers: Hypotension type: unspecified hypotension type Qualified Code(s): I95.9 - Hypotension, unspecified Is this a current diagnosis for this admission?: Yes (3) Headache Qualifiers: Headache type: unspecified Headache chronicity pattern: acute headache Intractability: not intractable Qualified Code(s): R51 - Headache Is this a current diagnosis for this admission?: Yes (4) Renal insufficiency Is this a current diagnosis for this admission?: Yes (5) Hypertension Is this a current diagnosis for this admission?: Yes (6) Morbid obesity with BMI of 60.0-69.9, adult Is this a current diagnosis for this admission?: Yes - Time Time Spent with patient: 25-34 minutes Medications reviewed and adjusted accordingly: Yes Anticipated discharge: Home with Homehealth Within: Other - Inpatient Certification Based on my medical assessment, after consideration of the patient's com orbidities, presenting symptoms, or acuity I expect that the services needed warrant INPATIENT care.: Yes I certify that my determination is in accordance with my understanding of Medicare's requirements for reasonable and necessary INPATIENT services [42 CFR 412.3e].: Yes Medical Necessity: Significant Comorbidiites Make Outpatient Treatment Too Risky, Need Close Monitoring Due to Risk of Patient Decompensation, Need For IV Fluids, Need For Continuous Telemetry Monitoring, Risk of Complication if Not Cared For in Hospital, Risk of Diagnosis Which Will Require Inpatient Eval/Care/Monitoring Post Hospital Care: D/C Air Deodorizer Servicer Documentation - Plan Summary Plan Summary: Continue current medical management. Follow up on carotid duplex and echocardiogram request. Continue physical therapy intervention. Change patient status to full admission.
--- NOTE | 2018-09-03 16:40 | RADIOLOGY REPORT (SQ) ---
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 TECHNIQUE: Grayscale ultrasound, Doppler velocity and spectra, and color Doppler images acquired of the extra-cranial carotid and vertebral arteries. Images stored on PACS. LIMITATIONS: None. FINDINGS: RIGHT CAROTID CCA Velocities: Within normal limits. ICA Velocities Peak systolic 80 cm/s. End diastolic 21 cm/s. Proximal ICA/CCA peak systolic ratio 1.1. Spectra normal. No significant plaque. LEFT CAROTID CCA Velocities: Within normal limits. ICA Velocities Peak systolic 70 cm/s. End diastolic 27 cm/s. Proximal ICA/CCA peak systolic ratio 0.8. Spectra normal. No significant plaque. VERTEBRAL ARTERIES: Antegrade flow. Normal waveforms. SUBCLAVIAN ARTERIES: No finding. OTHER: No other significant finding. IMPRESSION: 1. NO HEMODYNAMICALLY SIGNIFICANT STENOSIS. COMMENT: Quality ID #[id number]: Velocity criteria are extrapolated from the diameter data as defined by t he Society of Radiologists in Ultrasound Consensus Conference. Radiology 2003: 229; 340-346. TECHNICAL DOCUMENTATION: JOB ID: [id number] [employer]- All Rights Reserved Reading location - IP/workstation name: [email or web address]
--- NOTE | 2018-09-03 20:41 | XCELERA REPORT ---
[address] [address] Transthoracic Echocardiogram Report Name: LEONARDA RIVERA Age: 62 yrs Gender: Female : 1955 Patient Status: Inpatient Patient Location: [facility]^A Study Date: 09/03/2018 03:24 PM Height: 64 in Weight: 346 lb BSA: 2.5 m2 Procedure: A two-dimensional transthoracic echocardiogram with color flow and Doppler was performed. The study was technically limited with all images being suboptimal in quality. Reason For Study: TIA History: TIA. Ordering Physician: TAMMIE BRITT Performed By: Taylor Ortiz Interpretation Summary There is no obvious cardiac source of embolus noted on this transthoracic echocardiogram. Follow-up with a LESLEY is suggested if cardiac source is still suspected. The left ventricle is normal in size. There is normal left ventricular wall thickness. The left ventricular ejection fraction is within normal limits. LV EF is 70% Doppler measurements suggest normal left ventricular diastolic function The left ventricular wall motion is normal. There is no thrombus. There is no ventricular septal defect visualized. The right ventricle is normal in size and function. The right atrium is normal. The left atrial size is normal. The interatrial septum is intact with no evidence for an atrial septal defect. There is no Doppler evidence for an interatrial shunt There is no mitral valve stenosis. There is no evidence of mitral valve prolapse. There is no vegetation seen on the mitral valve. There is a trace amount of mitral regurgitation There is no aortic valvular vegetation. There is aortic sclerosis without aortic stenosis. There is no LVOT obstruction. No aortic regurgitation is present. There is no tricuspid stenosis. There is a trace amount of tricuspid regurgitation Unable to calculate RVSP due to insufficient TR jet. There is no pulmonic valvular stenosis. There is no pulmonic valvular regurgitation. The aortic root is normal size. There is no pericardial effusion. There is no obvious cardiac source of embolus noted on this transthoracic echocardiogram. Follow-up with a LESLEY is suggested if cardiac source is still suspected MMode/2D Measurements & Calculations RVDd: 3.6 cm LVIDd: 4.6 cm FS: 43.2 % Ao root diam: 2.9 cm IVSd: 1.0 cm LVIDs: 2.6 cm EDV(Teich): Ao root area: LVPWd: 1.1 cm 99.5 ml 6.5 cm2 ESV(Teich): LA dimension: 3.6 cm 25.5 ml EF(Teich): 74.4 % LVLd ap4: 8.3 cm SV(MOD-sp4): EDV(MOD-sp4): 69.0 ml 100.0 ml LVLs ap4: 7.2 cm ESV(MOD-sp4): 31.0 ml EF(MOD-sp4): 69.0 % Doppler Measurements & Calculations MV E max tahira: MV P1/2t max tahira: Ao V2 max: LV V1 max P.8 cm/sec 92.8 cm/sec 144.3 cm/sec 5.7 mmHg MV A max tahira: MV P1/2t: 66.7 msec Ao max PG: LV V1 max: 68.1 cm/sec MVA(P1/2t): 3.3 cm2 8.3 mmHg 119.4 cm/sec MV E/A: 1.4 MV dec slope: 407.4 cm/sec2 MV dec time: 0.21 sec PA V2 max: MV P1/2t-pr_phl: 73.5 cm/sec 66.7 msec PA max P.2 mmHg Left Ventricle The left ventricle is normal in size. There is normal left ventricular wall thickness. The left ventricular ejection fraction is within normal limits. LV EF is 70%. Doppler measurements suggest normal left ventricular diastolic function. The left ventricular wall motion is normal. There is no thrombus. There is no ventricular septal defect visualized. Right Ventricle The right ventricle is normal in size and function. Atria The right atrium is normal. The left atrial size is normal. The interatrial septum is intact with no evidence for an atrial septal defect. There is no Doppler evidence for an interatrial shunt. Mitral Valve There is no evidence of mitral valve prolapse. There is no vegetation seen on the mitral valve. There is no mitral valve stenosis. There is a trace amount of mitral regurgitation. Aortic Valve There is no aortic valvular vegetation. There is aortic sclerosis without aortic stenosis. There is no LVOT obstruction. No aortic regurgitation is present. Tricuspid Valve There is no tricuspid stenosis. There is a trace amount of tricuspid regurgitation. Unable to calculate RVSP due to insufficient TR jet. Pulmonic Valve There is no pulmonic valvular stenosis. There is no pulmonic valvular regurgitation. Great Vessels The aortic root is normal size. Effusions There is no pericardial effusion. : TAMMIE BRITT > Lexi Gavin
[2018-09-03] MEDS: ATORVASTATIN CALCIUM 80 MG TABLET PO SCH (22:26)
[2018-09-04] MEDS: GABAPENTIN 300 MG CAPSULE PO SCH ×2 (06:42→14:49)
[2018-09-04] MEDS: BENAZEPRIL HCL 20 MG TABLET PO SCH (08:59)
[2018-09-04] MEDS: TOPIRAMATE 100 MG TABLET PO SCH (08:59)
[2018-09-04] MEDS: HALOPERIDOL 5 MG TABLET PO SCH (08:59)
[2018-09-04] MEDS: ASPIRIN 325 MG TABLET, ENT COATED PO SCH (08:59)
[2018-09-04] MEDS: ENOXAPARIN SODIUM INJ 40 MG/0.4 ML DISP.SYRIN SUBCUT SCH (09:00)
[2018-09-04] MEDS: BENZTROPINE MESYLATE 1 MG TABLET PO SCH ×2 (09:00→17:27)
[2018-09-04] MEDS: SERTRALINE HCL 50 MG TABLET PO SCH (09:00)
[2018-09-04] MEDS: AMLODIPINE BESYLATE 10 MG TABLET PO SCH (09:00)
[2018-09-04] MEDS: HYDROCODONE/ACETAMINOPHEN 10-325 MG TABLET PO PRN (17:33)
--- NOTE | 2018-09-04 18:31 | PDOC DISCHARGE SUMMARY ---
General - Admit/Disc Date/PCP Admission Date/Primary Care Provider: 09/03/18 12:26 HECTOR JAYA Discharge Date: 09/04/18 - Discharge Diagnosis (1) Transient ischemic attack with visual impairment Is this a current diagnosis for this admission?: Yes (2) Hypotension Is this a current diagnosis for this admission?: Yes (3) Headache Is this a current diagnosis for this admission?: Yes (4) Renal insufficiency Is this a current diagnosis for this admission?: Yes (5) Hypertension Is this a current diagnosis for this admission?: Yes (6) Morbid obesity with BMI of 60.0-69.9, adult Is this a current diagnosis for this admission?: Yes - Additional Information Prescriptions: Aspirin [Ecotrin 81 mg EC Tablet] 81 mg PO DAILY 7 Days #1 pkg Aspirin/Dipyridamole [Aggrenox 25 mg/200 mg Capsule SA] 1 cap.sr PO Q12 #60 cpmp.12hr Atorvastatin Calcium [Lipitor 80 mg Tablet] 80 mg PO QHS #30 tablet Home Medications: Amlodipine Besylate/Benazepril [Lotrel 10-40 mg Capsule] 1 cap PO DAILY 09/01/18 Benztropine Mesylate [Benztropine Mesylate 2 mg Tablet] 2 mg PO BID 09/01/18 Dextroamphetamine/Amphetamine [Adderall XR 20 mg Capsule] 20 mg PO QAM 09/01/18 Gabapentin [Neurontin] 600 mg PO Q8 09/01/18 Haloperidol 10 mg PO QHS 09/01/18 Haloperidol [Haldol 5 mg Tablet] 5 mg PO QAM 09/01/18 Hydrocodone/Acetaminophen [Gratiot 10-325 Tablet] 1 tab PO Q4HP PRN 09/01/18 Sertraline HCl [Zoloft] 150 mg PO DAILY 09/01/18 Topiramate [Topamax] 200 mg PO BID 09/01/18 Aspirin [Ecotrin 81 mg EC Tablet] 81 mg PO DAILY 7 Days #1 pkg 09/04/18 Aspirin/Dipyridamole [Aggrenox 25 mg/200 mg Capsule SA] 1 cap.sr PO Q12 #60 cpmp.12hr 09/04/18 Atorvastatin Calcium [Lipitor 80 mg Tablet] 80 mg PO QHS #30 tablet 09/04/18 History of Present Illness Patient complains of: Transient loss of vision, left-sided headache and left- sided weakness. History of Present Illness: LEONARDA RIVERA is a 62 year old female, she came to the emergency room for evaluation of a new onset transient loss of vision, left-sided headache and left-sided weakness. She stated that she was in granddaughter's house, she was drinking wine and she experienced transient loss of vision that lasted few mi nutes subsequently she developed a headache and also transient weakness of left side of her body. She had difficulty ambulating, she was assisted to the vehicle by family members. When she arrived in the emergency room the blood pressure recorded was low there was no explanation for the low blood pressure she was fluid challenge with improvement in the blood pressure she was also found to have elevated serum creatinine at 1.69, she does not have a known history of kidney disease that she know of, she has chronic pain and she follows with pain management she is on opioid Gratiot with gabapentin for pain control. She has no diabetes mellitus but she is overweight/obese, she had gastric bypass in the s obviously that is unsuccessful surgery because she is very obese, the body mass index is 59. Hospital Course Hospital Course: She was admitted for possible TIA with left hemiparesis. She was managed with full dose Ecotrin and Lipid lowering medication. her home anti Hypertensive medication were restarted after improvement in her presenting hypotension. She participated in physical therapy session. Her radiographic evaluation including head CT and MRI, carotid duplex and echocardiogram were unrevealing of significant pathology to explain her presentation of acute TIA or stroke. Her presenting symptoms including headache and visual impairment did resolved. Her left hemiparesis improved with physical therapy intervention and she has been am bulatory with walker assistance. She expressed preference for home health agency with physical therapy to discharge to SNF for short term rehabilitation. She will be discharged home today and follow up in the office as instructed upon discharge. Physical Exam Vital Signs: Temp Pulse Resp BP Pulse Ox 98.1 F 70 17 131/70 H 99 09/04/18 07:54 09/04/18 14:00 09/04/18 07:54 09/04/18 07:54 09/04/18 07:54 Intake & Output 09/03/18 09/04/18 09/05/18 06:59 06:59 06:59 Intake Total 900 1060 240 Output Total 1750 Balance -850 1060 240 Weight 162.7 kg 159.3 kg Physical Exam: General appearance: PRESENT: no acute distress Head exam: PRESENT: atraumatic, normocephalic Eye exam: PRESENT: conjunctiva pink. ABSENT: pallor, scleral icterus Ear exam: PRESENT: normal external ear exam Mouth exam: PRESENT: moist Respiratory exam: PRESENT: chest wall tenderness, decreased breath sounds Cardiovascular exam: PRESENT: RRR. ABSENT: diastolic murmur, rubs, systolic murmur GI/Abdominal exam: PRESENT: normal bowel sounds, soft. ABSENT: distended, guarding, mass, organomegaly, rebound, tenderness Extremities exam: ABSENT: pedal edema Neurological exam: PRESENT: alert, awake, oriented to person, oriented to place, oriented to time, oriented to situation, CN II-XII grossly intact, other - left lower hemiparesis, motor power 4/5. ABSENT: motor sensory deficit Psychiatric exam: PRESENT: appropriate affect, normal mood. ABSENT: homicidal ideation, suicidal ideation Skin exam: PRESENT: dry, warm Results Laboratory Results: 09/03/18 05:48 09/03/18 05:48 08/31/18 23:30 Clean Catch Midstream Urine Culture - Final Urogenital Catalina 08/31/18 08/31/18 08/31/18 15:30 15:30 22:24 Creatine Kinase 159 H 120 CK-MB (CK-2) 0.50 Troponin I < 0.012 08/31/18 09/01/18 09/01/18 22:24 04:35 04:35 Creatine Kinase 151 H CK-MB (CK-2) 0.49 0.58 Troponin I < 0.012 < 0.012 09/01/18 09/01/18 09/01/18 10:17 10:17 15:50 Creatine Kinase 164 H CK-MB (CK-2) 0.69 Troponin I < 0.012 < 0.012 09/01/18 09/02/18 22:08 03:58 Creatine Kinase CK-MB (CK-2) Troponin I < 0.012 < 0.012 Impressions: Head CT 08/31/18 00:00 IMPRESSION: No CT evidence of acute stroke or hemorrhage. EVIDENCE OF ACUTE STROKE: NO. Findings reported ER by critical findings reporting system at time of dictation. Chest X-Ray 08/31/18 15:08 IMPRESSION: NO ACUTE DISEASE. Head MRI 09/01/18 00:00 IMPRESSION: NORMAL MRI OF THE BRAIN WITHOUT INTRAVENOUS GADOLINIUM CONTRAST. EVIDENCE OF ACUTE STROKE: NO. Renal Ultrasound 09/01/18 00:00 IMPRESSION: NORMAL RENAL AND BLADDER ULTRASOUND. Carotid Doppler Study 09/03/18 00:00 IMPRESSION: 1. NO HEMODYNAMICALLY SIGNIFICANT STENOSIS. Qualifiers - * PATIENT BEING DISCHARGED WITH ANY OF THE FOLLOWING DIAGNOSIS: Stroke Stroke Pt being discharged on Anti-thrombolytic therapy?: Yes Stroke Pt being discharged on Anti-coagulation therapy?: No Reason(s) for not prescribing Anti-coagulation therapy:: Not indicated Stroke Pt being discharged on Statins?: Yes Acute Heart Failure - Is this a Heart Failure Patient?: No Plan Discharge Plan: Discharge home today. Follow up in the office as instructed upon discharge.
[2018-09-04 18:51] VITALS: BP 133/87
== END 2018-09-04 19:11 | disposition home health service (06) | DRG 69 ==
LOC: ER 15:00 → EH 18:40 → 3W 21:28 → OBSVTOIN 09-03 12:26
PROVIDERS: ADMIT Internal Medicine Geriatric Medicine; ATTEND Internal Medicine Geriatric Medicine
DX: G45.9 Transient cerebral ischemic attack, unspecified (principal); H53.129 Transient visual loss, unspecified eye; G81.94 Hemiplegia, unspecified affecting left nondominant side; Z68.44 Body mass index [BMI] 60.0-69.9, adult; R53.1 Weakness; I95.9 Hypotension, unspecified; I10 Essential (primary) hypertension; R29.810 Facial weakness; R51 Headache; F41.8 Other specified anxiety disorders; F17.210 Nicotine dependence, cigarettes, uncomplicated; E66.01 Morbid (severe) obesity due to excess calories; Z98.84 Bariatric surgery status
CPT/HCPCS: 36415; 70450; 70551; 71045; 76770; 80048; 80053; 80061; 80076; 81001; 82140; 82150; 82550; 82553; 82962; 83036; 83690; 83735; 84100; 84439; 84443; 84484; 85025; 85379; 85610; 85730; 87040; 87086; 93005; 93010; 93306; 93880; 96360; 96361; 99291; J1650; J3490; J7030

== ENCOUNTER 2019-04-10 02:14 | Emergency (ER) | payer MEDICARE ==
[2019-04-10 04:13] LABS: ABSOLUTE EOSINOPHILS # (AUTO) 0.2 10^3/uL (0.0-0.6); ABSOLUTE LYMPHOCYTES (AUTO) 3.5 10^3/uL (0.5-4.7); ABSOLUTE MONOCYTES (AUTO) 0.5 10^3/uL (0.1-1.4); BASOPHILS % (AUTO) 0.7 % (0-2); EOSINOPHILS % (AUTO) 2.6 % (0-6); HEMATOCRIT 39.5 % (36.0-47.0); HEMOGLOBIN 13.1 g/dL (12.0-15.5); MEAN CORPUSCULAR HEMOGLOBIN 29.5 pg (27.0-33.4); MEAN CORPUSCULAR HGB CONC 33.2 g/dL (32.0-36.0); MEAN CORPUSCULAR VOLUME 89 fl (80-97); MONOCYTES % (AUTO) 6.9 % (3-13); PLATELET COUNT 270 10^3/uL (150-450); RED BLOOD COUNT 4.45 10^6/uL (3.72-5.28); RED CELL DISTRIBUTION WIDTH 14.8 % (11.5-14.0); SEGMENTED NEUTROPHILS % (AUTO) 41.8 % (42-78); TOTAL CELLS COUNTED % (AUTO) 100 %; WHITE BLOOD COUNT 7.3 10^3/uL (4.0-10.5)
[2019-04-10 04:25] LABS: ALBUMIN 3.6 g/dL (3.5-5.0); ALKALINE PHOSPHATASE 85 U/L (38-126); ANION GAP 8 (5-19); ASPARTATE AMINO TRANSFERASE 31 U/L (14-36); BILIRUBIN,DIRECT 0.2 mg/dL (0.0-0.4); BILIRUBIN,TOTAL 0.4 mg/dL (0.2-1.3); BLOOD UREA NITROGEN 6 mg/dL (7-20); CALCIUM 9.1 mg/dL (8.4-10.2); CARBON DIOXIDE 27 mmol/L (22-30); CHLORIDE 106 mmol/L (98-107); GLUCOSE 107 mg/dL (75-110); POTASSIUM 3.3 mmol/L (3.6-5.0); TOTAL PROTEIN 6.9 g/dL (6.3-8.2)
--- NOTE | 2019-04-10 04:56 | RADIOLOGY REPORT (SQ) ---
EXAM DESCRIPTION: XR ABDOMEN 1 VIEW (KUB) COMPLETED DATE/TME: 04/10/2019 00:00 CLINICAL HISTORY: 63 years, Female, PAIN COMPARISON: None. NUMBER OF VIEWS: 3 TECHNIQUE: AP abdomen LIMITATIONS: None. FINDINGS: Osteopenia. Degenerative changes of the lumbar spine. The bowel gas pattern is nonspecific. Evaluation for free air limited on a supine view. Postsurgical changes in the upper abdomen. Nondilated air-filled loops of large and small bowel IMPRESSION: Nonspecific bowel gas pattern copyright 2010 [employer]- All Rights Reserved
[2019-04-10 05:26] LABS: APPEARANCE,URINE SLIGHTLY-CLOUDY; BILIRUBIN,URINE NEGATIVE (NEGATIVE); COLOR,URINE YELLOW; GLUCOSE, URINE NEGATIVE (NEGATIVE); KETONES,URINE NEGATIVE (NEGATIVE); LEUKOCYTE ESTERASE,URINE TRACE (NEGATIVE); NITRITE,URINE NEGATIVE (NEGATIVE); PROTEIN,URINE NEGATIVE (NEGATIVE); URINE SPECIFIC GRAVITY 1.015; UROBILINOGEN,URINE NEGATIVE mg/dL (<2.0)
[2019-04-10] MEDS ORDERED: POTASSIUM CHLORIDE 10 MEQ TABLET.ER PO ONE (08:29)
[2019-04-10] MEDS ORDERED: KETOROLAC TROMETHAMINE 10 MG TABLET PO ONE (08:29)
--- NOTE | 2019-04-10 08:33 | ER Document Report ---
ED General - General Chief Complaint: Abdominal Pain Stated Complaint: LOWER RIGHT PAIN Time Seen by Provider: 04/10/19 08:18 Primary Care Provider: HECTOR LAKE MD [Primary Care Provider] - Follow up as needed Notes: Patient is a 63-year-old -French female with a past medical history of obesity and hypertension that is reported who presents to the emergency department the chief complaint of right-sided abdominal and flank pain for the past 2 weeks. She states over the past day or 2 it has progressively worsened. She states the pain does not bother her during the day only when she lies down at night. She states it is associated occasionally with some nausea. Denies any vomiting or diarrhea. She has a history of prior cholecystectomy. She denies any urinary complaints, vaginal bleeding or discharge. Denies any fever chills or night sweats. TRAVEL OUTSIDE OF THE [place] IN LAST 30 DAYS: No - Related Data Allergies/Adverse Reactions: No Known Allergies Allergy (Verified 04/10/19 02:33) Past Medical History - Social History Smoking Status: Current Every Day Smoker Family History: Reviewed & Not Pertinent Patient has suicidal ideation: No Patient has homicidal ideation: No - Past Medical History Cardiac Medical History: Reports: Hx Hypertension - meds few yrs Denies: Hx Coronary Artery Disease, Hx Heart Attack Pulmonary Medical History: Denies: Hx Asthma, Hx Bronchitis, Hx COPD, Hx Pneumonia, Hx Tuberculosis Neurological Medical History: Denies: Hx Cerebrovascular Accident, Hx Seizures Renal/ Medical History: Denies: Hx Peritoneal Dialysis Musculoskeletal Medical History: Reports Hx Arthritis - all over Psychiatric Medical History: Reports: Hx Depression - anxiety Past Surgical History: Reports: Hx Cholecystectomy, Hx Hysterectomy. Denies: Hx Pacemaker - Immunizations Immunizations up to date: Yes Hx Diphtheria, Pertussis, Tetanus Vaccination: No Hx Pneumococcal Vaccination: 11/03/12 Review of Systems - Review of Systems Gastrointestinal: Abdominal pain, Nausea -: Yes All other systems reviewed and negative Physical Exam - Vital signs Vitals: Temp Pulse Resp BP Pulse Ox 98.4 F 84 20 111/72 96 04/10/19 02:22 04/10/19 02:22 04/10/19 02:22 04/10/19 02:22 04/10/19 02:22 - General General appearance: Appears well, Alert - Respiratory Respiratory status: No respiratory distress Chest status: Nontender Breath sounds: Normal Chest palpation: Normal - Cardiovascular Rhythm: Regular Heart sounds: Normal auscultation - Abdominal Inspection: Normal Distension: No distension Bowel sounds: Normal Tenderness: Nontender Organomegaly: No organomegaly - Back Back: Normal, Nontender. No: CVA tenderness - Neurological Neuro grossly intact: Yes Cognition: Normal Orientation: AAOx4 [place] Coma Scale Eye Opening: Spontaneous [place] Coma Scale Verbal: Oriented Todd Coma Scale Motor: Obeys Commands [place] Coma Scale Total: 15 Speech: Normal - Psychological Associated symptoms: Normal affect, Normal mood - Skin Skin Temperature: Warm Skin Moisture: Dry Skin Color: Normal Course - Re-evaluation Re-evalutation: 04/10/19 08:31 I have evaluated the patient, reviewed the results of her pre-orders that were put in prior to my arrival on shift. I discussed the findings with the patient and examined her. I recommended a CAT scan of the abdomen. The patient declined stating she cannot stay here any longer. She reports that she has to be in [place] soon and she must leave. Her and her family both exclaimed that they are in a "diaz". Discussed with him the risks of this decision including but not limited to sudden or permanent neurological disability. They verbalized understood but reported that they must leave. They are of sound mind admits to capacity to make informed decision. They are aware that they are free to return here any ER immediately to continue their care. I discussed with him the importance of outpatient follow-up and advised to return here or any ER immediately with any new, persistent or worsening symptoms. They verbalized understood and agreed. - Vital Signs Vital signs: Temp Pulse Resp BP Pulse Ox 97.7 F 65 18 120/60 100 04/10/19 07:11 04/10/19 07:11 04/10/19 07:11 04/10/19 07:11 04/10/19 07:11 - Laboratory Result Diagrams: 04/10/19 04:05 04/10/19 04:05 Laboratory results interpreted by me: 04/10/19 04/10/19 04/10/19 04:05 04:05 04:45 RDW 14.8 H Lymph % (Auto) 48.0 H Seg Neutrophils % 41.8 L Potassium 3.3 L BUN 6 L Ur Leukocyte Esterase TRACE H Discharge - Discharge Clinical Impression: Flank pain Abdominal pain Qualifiers: Abdominal location: unspecified location Qualified Code(s): R10.9 - Unspecified abdominal pain Back pain Qualifiers: Back pain location: back pain in other location Chronicity: acute Qualified Code(s): M54.9 - Dorsalgia, unspecified Condition: Stable Disposition: AGAINST MEDICAL ADVICE Referrals: HECTOR LAKE MD [Primary Care Provider] - Follow up as needed
[2019-04-10 08:45] VITALS: BP 115/71
== END 2019-04-10 08:45 | disposition left against medical advice (07) ==
LOC: ER 02:14
DX: R10.31 Right lower quadrant pain (principal); M54.9 Dorsalgia, unspecified; F17.200 Nicotine dependence, unspecified, uncomplicated; I10 Essential (primary) hypertension; Z90.49 Acquired absence of other specified parts of digestive tract; Z90.710 Acquired absence of both cervix and uterus
CPT/HCPCS: 36415; 83690; 85025; 80053; 81001; 74018; A9270 ×2; J3490

== ENCOUNTER → 2019-04-11 | Outpatient (CLI) | payer MEDICARE ==
--- NOTE | 2019-04-11 16:15 | RADIOLOGY REPORT (SQ) ---
EXAM DESCRIPTION: CT ABD/PELVIS WITH IV ORAL COMPLETED DATE/TIME: 04/11/2019 4:01 pm REASON FOR STUDY: R10.31 RIGHT LOWER QUADRANT PAIN R10.31 RIGHT LOWER QUADRANT PAIN COMPARISON: 08/26/2013. TECHNIQUE: CT scan of the abdomen and pelvis performed with intravenous and oral contrast using coleman joe scanning technique with dynamic intravenous contrast injection. Images reviewed with lung, soft t issue, and bone windows. Reconstructed coronal and sagittal MPR images reviewed. Delayed images for e valuation of the urinary system also acquired. All images stored on PACS. All CT scanners at this facility use dose modulation, iterative reconstruction, and/or weight based d osing when appropriate to reduce radiation dose to as low as reasonably achievable (ALARA). [facility]: Dose Right [facility]: CareDose [facility]: Dose Right [facility]: Teradose 4D [facility]: [employer] CONTRAST TYPE AND DOSE: contrast/concentration: Isovue 350.00 mg/ml; Total Contrast Delivered: 100.0 ml; Total Saline Delivered: 72.0 ml RENAL FUNCTION: BUN 20 creatinine 0.87. RADIATION DOSE: CT Rad equipment meets quality standard of care and radiation dose reduction techniq ues were employed. CTDIvol: 31.0 - 31.0 mGy. DLP: 3265 mGy-cm.. LIMITATIONS: None. FINDINGS: LOWER CHEST: No significant findings. No nodules or infiltrates. LIVER: Normal size. No masses. No dilated ducts. SPLEEN: Normal size. No focal lesions. PANCREAS: No masses. No significant calcifications. No adjacent inflammation or peripancreatic fluid collections. Pancreatic duct not dilated. GALLBLADDER: Surgically absent. ADRENAL GLANDS: No significant masses or asymmetry. RIGHT KIDNEY AND URETER: No solid masses. No significant calcification. No hydronephrosis or hydroure ter. LEFT KIDNEY AND URETER: No solid masses. No significant calcification. No hydronephrosis or hydrouret er. AORTA AND VESSELS: No aneurysm. No dissection. Renal arteries, SMA, celiac without stenosis. RETROPERITONEUM: No retroperitoneal adenopathy, hemorrhage or masses. BOWEL AND PERITONEAL CAVITY: Contrast is present throughout the small bowel and colon. No obstructio n. No visualized masses. No free fluid. No inflammatory changes or thickening of bowel wall. Previo us gastric surgery. APPENDIX: Normal. PELVIS: No significant masses. Normal bladder. No free fluid. ABDOMINAL WALL: No masses. Umbilical hernia containing a portion of small bowel. Midline hernia abo ve the umbilicus containing a portion of the transverse colon. Midline hernia below the umbilicus co ntaining loops of small bowel. BONES: No significant or acute findings. Degenerative changes in the spine. OTHER: No other significant finding. IMPRESSION: 1. UMBILICAL AND ABDOMINAL WALL HERNIAS DESCRIBED CONTAINING LOOPS OF SMALL BOWEL AND COLON. NO E VIDENCE OF MECHANICAL OBSTRUCTION. 2. NO OTHER SIGNIFICANT OR ACUTE FINDINGS IN THE ABDOMEN OR PELVIS. TECHNICAL DOCUMENTATION: JOB ID: [id number] Quality ID # [id number]: Final reports with documentation of one or more dose reduction techniques (e.g., Au tomated exposure control, adjustment of the mA and/or kV according to patient size, use of iterative reconstruction technique) 2010 [email or web address]- All Rights Reserved Reading location - IP/workstation name: [email or web address]
== END ==
LOC: RAD 12:58
PROVIDERS: ATTEND Internal Medicine Geriatric Medicine
DX: K42.9 Umbilical hernia without obstruction or gangrene (principal); R10.31 Right lower quadrant pain
CPT/HCPCS: 74177

== ENCOUNTER → 2020-01-14 | Outpatient (CLI) | payer MEDICARE ==
--- NOTE | 2020-01-14 13:10 | RADIOLOGY REPORT (SQ) ---
EXAM DESCRIPTION: HIP RIGHT AP/LATERAL IMAGES COMPLETED DATE/TIME: 01/14/2020 12:47 pm REASON FOR STUDY: CHRONIC PAIN SYNDROME; RT HIP PAIN G89.4 CHRONIC PAIN SYNDROME M25.551 PAIN IN R IGHT HIP COMPARISON: None. NUMBER OF VIEWS: Two views. TECHNIQUE: AP pelvis and additional frog legview of the right hip. LIMITATIONS: None. FINDINGS: MINERALIZATION: Normal. RIGHT HIP: Joint space narrowing and subchondral sclerosis. No acute fracture or dislocation. LEFT HIP: Similar changes in the left hip. PUBIS AND ISCHIUM: No fracture. PELVIS: No fracture. SACRUM: No fracture or dislocation. No worrisome bone lesions. LOWER LUMBAR SPINE: No fracture or dislocation. No worrisome bone lesions. No significant disc disea se. SOFT TISSUES: No findings. OTHER: No other significant finding. IMPRESSION: Joint space narrowing and subchondral sclerosis. No acute fracture or dislocation. TECHNICAL DOCUMENTATION: JOB ID: [id number] 2010 [employer]- All Rights Reserved Reading location - IP/workstation name: [email or web address]
--- NOTE | 2020-01-14 13:12 | RADIOLOGY REPORT (SQ) ---
EXAM DESCRIPTION: SACROILIAC JOINTS IMAGES COMPLETED DATE/TIME: 01/14/2020 12:47 pm REASON FOR STUDY: CHRONIC PAIN SYNDROME; RT HIP PAIN G89.4 CHRONIC PAIN SYNDROME M25.551 PAIN IN R IGHT HIP COMPARISON: None. NUMBER OF VIEWS: Three views. TECHNIQUE: AP and oblique views of the sacroiliac joints. LIMITATIONS: None. FINDINGS: MINERALIZATION: Normal. BONES: No acute fracture or dislocation. No worrisome bone lesions. No significant osteophytes. JOINTS: Patent sacral iliac joints. Probable spurring along the superior margin of the right SI join t. SOFT TISSUES: No soft tissue swelling. No radio-opaque foreign body. OTHER: Degenerative changes in the visualized lumbar spine. IMPRESSION: Prominent osteophytic spurring along the superior margin of the right SI joint. This is well demonstrated on prior CT as well. TECHNICAL DOCUMENTATION: JOB ID: [id number] 2010 [employer]- All Rights Reserved Reading location - IP/workstation name: [email or web address]
== END ==
LOC: OD 12:11
PROVIDERS: ATTEND Physician Assistant
DX: M25.551 Pain in right hip (principal); M76.891 Other specified enthesopathies of right lower limb, excluding foot; G89.4 Chronic pain syndrome
CPT/HCPCS: 72200

== ENCOUNTER → 2020-01-28 | Outpatient (CLI) | payer MEDICARE ==
--- NOTE | 2020-01-28 15:24 | WOMENS IMAGING REPORT ---
EXAM DESCRIPTION: BILAT SCREENING MAMMO W/CAD IMAGES COMPLETED DATE/TIME: 01/28/2020 3:04 pm REASON FOR STUDY: ENCNTR SCREEN MAMMOGRAM FOR MALIGNANT NEOPLASM OF BREAST Z12.31 ENCNTR SCREEN MECHELLE MOGRAM FOR MALIGNANT NEOPLASM OF RJ COMPARISON: Priors back to 2012 EXAM PARAMETERS: Standard craniocaudal and mediolateral oblique views of each breast recorded using digital acquisition. Read with the assistance of CAD. .[facility], [facility] - [employer]er Version 9.2 LIMITATIONS: None. FINDINGS: No suspicious masses, suspicious calcifications or architectural distortion. No areas of c oncern. IMPRESSION: NEGATIVE MAMMOGRAM. BIRADS 1 BREAST DENSITY: b. There are scattered areas of fibroglandular density. BIRAD: ASSESSMENT: 1 NEGATIVE RECOMMENDATION: ROUTINE SCREENING COMMENT: The patient has been notified of the results by letter per MQSA requirements. Additional no tification policies are in place for contacting patient with suspicious or incomplete findings. Quality ID #225: The [employer] recommends an annual screening mammogram for women aged 40 years or over. This facility utilizes a reminder system to ensure that all patients receive reminder letters, and/or direct phone calls for appointments. This includes reminders for routine scr eening mammograms, diagnostic mammograms, or other Breast Imaging Interventions when appropriate. Th is patient will be placed in the appropriate reminder system. TECHNICAL DOCUMENTATION: FINDING NUMBER: (1) ASSESSMENT: (1) JOB ID: [id number] 2010 [employer] All Rights Reserved Reading location - IP/workstation name: [email or web address]
== END ==
LOC: WI 14:15
PROVIDERS: ATTEND Nurse Practitioner Adult Health
DX: Z12.31 Encounter for screening mammogram for malignant neoplasm of breast (principal)
CPT/HCPCS: 77067